=== PATIENT | female | born 1980 | race Caucasian/White ===

== ENCOUNTER 2016-07-06 19:56 | Emergency (ER) | payer MEDICAID ==
[2016-07-06 20:19] VITALS: BP 133/76
--- NOTE | 2016-07-06 20:19 | ER Document Report ---
ED Medical Screen (RME) - General Stated Complaint: TOOTHACHE Time seen by provider: 20:17 Mode of Arrival: Ambulatory Information source: Patient Notes: 36-year-old female complaining of lower central incisor pain due to receding gumline. Her dentist told her she needed to have surgery on the gums. No abscess. [place] oil is not helping. - Related Data Allergies/Adverse Reactions: Sulfa (Sulfonamide Antibiotics) Allergy (Verified 06/25/11 08:24) Past Medical History Pulmonary Medical History: Reports: Hx Asthma Neurological Medical History: Reports: Hx Migraine Past Surgical History: Reports: Hx Tubal Ligation - Immunizations Hx Diphtheria, Pertussis, Tetanus Vaccination: Yes
[2016-07-06] MEDS ORDERED: OXYCODONE-ACETAMINOPHEN 5-325 MG TABLET PO ONE (20:53)
--- NOTE | 2016-07-06 20:55 | ER Document Report ---
HPI - HPI Patient complains to provider of: dental pain Onset: Yesterday Onset/Duration: Gradual Quality of pain: Achy Pain Level: 5 Context: Patient complains of dental pain that started yesterday. Patient states she is currently on amoxicillin and Motrin to treat for dental infection. Patient is to be scheduled for oral surgery after she gets her income tax refund check. Patient states Motrin is not managing her pain symptoms. Associated Symptoms: Other - Dental pain. denies: Fever Exacerbated by: Denies Relieved by: Denies Similar symptoms previously: Yes Recently seen / treated by doctor: Yes - ROS ROS below otherwise negative: Yes Systems Reviewed and Negative: Yes All other systems reviewed and negative - CONSTITUTIONAL Constitutional: DENIES: Fever, Chills - EENT EENT: DENIES: Sore Throat, Ear Pain, Nasal Drainage-Clear, Nasal Drainage- Purulent, Congestion, Eye problems Notes: Dental pain - NEURO Neurology: DENIES: Headache - CARDIOVASCULAR Cardiovascular: DENIES: Chest pain - RESPIRATORY Respiratory: DENIES: Trouble Breathing, Coughing - GASTROINTESTINAL Gastrointestinal: DENIES: Nausea, Patient vomiting - URINARY Urinary: DENIES: Dysuria, Urgency, Frequency - MUSCULOSKELETAL Musculoskeletal: DENIES: Neck Pain - DERM Skin Color: Normal Skin Problems: None - NURSING COMMENTS Comment: Pt states that her 2 front teeth are hurting, gum line receding tissue surrounding teeth red and swollen. Pt states she saw primary care and started amoxicillin and ibuprofen 800 but that they arent helping Past Medical History - General Information source: Patient Last Menstrual Period: last month - Social History Smoking Status: Current Every Day Smoker Cigarette use (# per day): No Chew tobacco use (# tins/day): No Frequency of alcohol use: Occasional Drug Abuse: None Occupation: none Lives with: Family Family History: Reviewed & Not Pertinent Patient has suicidal ideation: No Patient has homicidal ideation: No Pulmonary Medical History: Reports: Hx Asthma Neurological Medical History: Reports: Hx Migraine Past Surgical History: Reports: Hx Tubal Ligation - Immunizations Hx Diphtheria, Pertussis, Tetanus Vaccination: Yes Vertical Provider Document - CONSTITUTIONAL Agree With Documented VS: Yes Exam Limitations: No Limitations General Appearance: WD/WN, No Apparent Distress - INFECTION CONTROL TRAVEL OUTSIDE OF THE [place] IN LAST 30 DAYS: No - HEENT HEENT: Atraumatic, Normocephalic. negative: Pharyngeal Exudate, Pharyngeal Tenderness, Pharyngeal Erythema, Tympanic Membrane Red, Tympanic Membrane Bulging Mouth Diagram: 1 - Tenderness with receding gingiva, no gingival swelling, no abscess. - NECK Neck: Normal Inspection, Supple. negative: Lymphadenopathy-Left, Lymphadenopathy-Right - RESPIRATORY Respiratory: Breath Sounds Normal, No Respiratory Distress O2 Sat by Pulse Oximetry: 100 - CARDIOVASCULAR Cardiovascular: Regular Rate, Regular Rhythm, No Murmur - BACK Back: Normal Inspection - MUSCULOSKELETAL/EXTREMETIES Musculoskeletal/Extremeties: MAEW - NEURO Level of Consciousness: Awake, Alert, Appropriate - DERM Integumentary: Warm, Dry, No Rash Course - Vital Signs Vital signs: Temp Pulse Resp BP Pulse Ox 98.0 F 96 16 133/76 H 100 07/06/16 20:39 07/06/16 20:39 07/06/16 20:39 07/06/16 20:39 07/06/16 20:39 Discharge - Discharge Clinical Impression: Pain, dental Condition: Stable Disposition: HOME, SELF-CARE Instructions: Toothache ([facility]), Oral Narcotic Medication ([facility]) Additional Instructions: Return immediately for any new or worsening symptoms Followup with your dental care provider, call tomorrow to make a followup appointment Continue to take your antibiotics as prescribed Prescriptions: Oxycodone HCl/Acetaminophen [Percocet 5-325 mg Tablet] 1 - 2 tab PO ASDIR PRN # 15 tablet PRN Reason: Referrals: LINCOLN GARCIA PA-C [Primary Care Provider] - Follow up as needed
== END 2016-07-06 21:25 | disposition home or self-care (01) ==
LOC: ER 19:56
DX: K04.7 Periapical abscess without sinus (principal); K08.89 Other specified disorders of teeth and supporting structures; F17.200 Nicotine dependence, unspecified, uncomplicated; J45.909 Unspecified asthma, uncomplicated
CPT/HCPCS: 99282

== ENCOUNTER 2017-04-07 23:08 | Emergency (ER) | payer MEDICAID ==
[2017-04-08] MEDS ORDERED: PREDNISONE 20 MG TABLET PO ONE (00:30)
[2017-04-08] MEDS ORDERED: DIAZEPAM 5 MG TABLET PO ONE (00:30)
[2017-04-08] MEDS ORDERED: KETOROLAC TROMETHAMINE 60 MG/2 ML SDV IM ONE (00:30)
--- NOTE | 2017-04-08 00:36 | ER Document Report ---
ED Neck/Back Problem - General Chief Complaint: LOWER BACK PAIN Stated Complaint: BACK PAIN Mode of Arrival: Ambulatory Information source: Patient TRAVEL OUTSIDE OF THE [place] IN LAST 30 DAYS: No - HPI Patient complains to provider of: Pain. No: Injury Onset: This evening Where: Home Onset: Sudden Timing: Constant Quality of pain: Pressure Severity: Moderate Context: Lifting. denies: Became dizzy Associated symptoms: Numbness/tingling, Radiation to leg. denies: Chest pain, Abdominal pain, Chills, Constipation, Fever, Incontinence, Like prior neck/back pain, Motor loss, Radiation to arm, Radiation to chest, Sensory loss, Sweaty, Unable to urinate, Lower back pain, Upper back pain Exacerbated by: Movement of trunk Relieved by: Remaining still Similar symptoms previously: Yes Notes: Patient arrives with complaints of low back pain. The patient has a history of chronic back pain. She was seen by pain management up until June of this year when she quit going. She states that she did not like taking the medications. States that she is in the process of moving and lifted a heavy bag of clothing earlier this evening. When she did this she had sudden pain in her lower back radiating down her right leg. This feels like previous pain she has had in the past. She denies any trauma or injury. She denies abdominal pain. She denies any bowel or bladder dysfunction. She denies blood thinners. She denies IV drug use. She denies any nausea, vomiting, diarrhea. She has no other complaints at this time. - Related Data Allergies/Adverse Reactions: Sulfa (Sulfonamide Antibiotics) Allergy (Verified 06/25/11 08:24) Past Medical History - Social History Smoking Status: Unknown if Ever Smoked Family History: Reviewed & Not Pertinent Patient has suicidal ideation: No Patient has homicidal ideation: No Pulmonary Medical History: Reports: Hx Asthma Neurological Medical History: Reports: Hx Migraine Renal/ Medical History: Denies: Hx Peritoneal Dialysis Past Surgical History: Reports: Hx Tubal Ligation - Immunizations Hx Diphtheria, Pertussis, Tetanus Vaccination: Yes Review of Systems - Review of Systems -: Yes All other systems reviewed and negative Physical Exam - Vital signs Vitals: Temp Pulse Resp BP Pulse Ox 98.4 F 94 16 130/80 H 94 04/07/17 23:53 04/07/17 23:53 04/07/17 23:53 04/07/17 23:53 04/07/17 23:53 - Notes Notes: GENERAL: alert, cooperative, nontoxic, no distress. HEAD: normocephalic, atraumatic EYES: conjunctiva pink without discharge, no external redness or swelling. EARS: no external swelling, no external redness NOSE: atraumatic, no external swelling MOUTH/THROAT: mucous membranes moist and pink, posterior pharynx without erythema, swelling, exudate. No trismus or drooling. NECK: soft, supple, full range of motion, no meningismus. CHEST: no distress, lungs clear and equal throughout. No wheezing, rales, rhonchi. CARDIAC: regular rate and rhythm, no murmur, normal capillary refill, normal pulses. No peripheral edema noted. ABDOMEN: soft, nontender, no pusatile mass. BACK: Tenderness to palpation of the lumbar spine and right paraspinal muscles of the lumbar spine into the right sciatic notch. Positive straight leg raise on the right. EXTREMITIES: full range of motion of all extremities. No redness, no swelling. NEURO: alert and oriented -3, no focal deficits, full range of motion of all extremities. 5 out of 5 flexion and extension of the lower extremities bilaterally. Patellar and Achilles deep tendon reflexes are +2 bilaterally. Normal sensation with no saddle anesthesia. PYSCH: appropriate mood, affect. Patient is cooperative. SKIN: pink, warm, dry, no rash. Course - Re-evaluation Re-evalutation: 04/08/17 00:33 The patient is nontoxic appearing with stable vitals. The patient has a history of chronic back pain. She has had back pain similar to this in the past. She was lifting a heavy bag of clothing when she had sudden pain in her lower back going down her right leg. There was no trauma. No sign of cauda equina, epidural abscess/bleed, discitis, AAA, UTI, pyelonephritis. She has a normal neurological exam at this time. Patient will be medicated here with Toradol, Valium, prednisone. Follow-up if not improving within the next week. I will discharge her home with Valium Voltaren and prednisone. She will be instructed to follow-up if not better in 1 week, sooner for increased pain, fever, bowel or bladder dysfunction, or any further concerns. The patient is noted to have elevated blood pressure during today's emergency department visit. The patient was informed of this finding. The patient was instructed that this may be related to pre-hypertension and requires further evaluation with a primary care provider. The patient has no hypertensive symptoms at this time. The patient's emergency department workup and current diagnosis were explained to the patient and or family. Follow-up instructions were provided. Medications if prescribed were discussed. Instructions for when to return to the emergency department including specific worrisome symptoms were discussed with the patient and/or family. - Vital Signs Vital signs: Temp Pulse Resp BP Pulse Ox 98.4 F 94 16 130/80 H 94 04/07/17 23:53 04/07/17 23:53 04/07/17 23:53 04/07/17 23:53 04/07/17 23:53 Discharge - Discharge Clinical Impression: Acute lumbar radiculopathy Condition: Stable Disposition: HOME, SELF-CARE Instructions: Radiculopathy ([facility]) Additional Instructions: Take medications as prescribed. Avoid heavy lifting. Stay mobile. Follow-up if not better in 1 week, sooner for increased pain, fever, difficulty controlling her bowels or bladder, abdominal pain, persistent vomiting, or any further concerns. Your blood pressure was elevated during today's visit. Have this rechecked with your doctor. The medication you were prescribed today may cause drowsiness. Do not drive or operate heavy machinery while taking this medication. Prescriptions: Diazepam [Valium 5 mg Tablet] 5 mg PO BIDP PRN #10 tablet PRN Reason: Diclofenac Sodium [Voltaren] 75 mg PO BID #20 tablet. Prednisone 60 mg PO DAILY #15 tablet Referrals: [facility] [Provider Group] - Follow up as needed
[2017-04-08 01:36] VITALS: BP 115/69
== END 2017-04-08 01:38 | disposition home or self-care (01) ==
LOC: ER 23:08
DX: M54.16 Radiculopathy, lumbar region (principal); M54.5 Low back pain; X50.0XXA Overexertion from strenuous movement or load, initial encounter; Y93.E6 Activity, residential relocation; Y92.009 Unspecified place in unspecified non-institutional (private) residence as the place of occurrence of the external cause; R03.0 Elevated blood-pressure reading, without diagnosis of hypertension; J45.909 Unspecified asthma, uncomplicated; Z88.2 Allergy status to sulfonamides
CPT/HCPCS: 99283; 96372; J3490; J1885; J7512

== ENCOUNTER 2019-03-27 22:52 | Emergency (ER) | payer MEDICAID ==
--- NOTE | 2019-03-27 22:56 | ER Document Report ---
ED Substance Abuse / Acc. OD - General Stated Complaint: POSSIBLE OVERDOSE Time Seen by Provider: 03/27/19 22:55 Mode of Arrival: Stretcher Information source: Patient, Emergency Med Personnel Notes: HISTORY OF PRESENT ILLNESS: Patient is a 38-year-old female with a past medical history of asthma, chronic back pain, and substance abuse who presents with difficulty breathing after heroin overdose requiring Narcan by EMS. Patient reports that she has never attempted had one before, however today she tried "a small amount" that she snorted and is unsure if it was "laced with something." Patient denies any other coingestion, denies intentional overdose. Patient was given 2 mg of Narcan by EMS with dramatic improvement of symptoms, previous to this patient had been nearly apneic with agonal respirations and had to be bagged. Upon arrival patient is at her baseline. Onset: Prior to arrival Provocation: "Not really know why did not" Quality: Accidental overdose Radiation: None Severity: Initially severe, now mild Timing: Improving SI/HI: None Hallucinations: None Current therapist: None Current treatment: None REVIEW OF SYSTEMS: CONSTITUTIONAL : Denies fever or chills, no sweats. Denies recent illness. EENT: Denies eye, ear, throat, or mouth pain or symptoms. Denies nasal or sinus congestion. CARDIOVASCULAR: Denies chest pain. RESPIRATORY: Denies cough, cold, or chest congestion. Denies shortness of breath, difficulty breathing, or wheezing. GASTROINTESTINAL: Denies abdominal pain. Denies nausea, vomiting, or diarrhea. Denies constipation. GENITOURINARY: Denies difficulty urinating, painful urination, burning, frequency, or blood in urine. FEMALE GENITOURINARY: Denies vaginal bleeding, abnormal or irregular periods. Last menstrual period MUSCULOSKELETAL: Denies neck or back pain or joint pain or swelling. SKIN: Denies rash or skin lesions. HEMATOLOGIC : Denies easy bruising or bleeding. LYMPHATIC: Denies swollen, enlarged glands. NEUROLOGICAL: Denies altered mental status or loss of consciousness. Denies headache. Denies weakness or paralysis or loss of use of either side. Denies problems with gait or speech. Denies sensory or motor loss. PSYCHIATRIC: Positive for drug overdose. Denies suicidal/homicidal thoughts. Denies anxiety or stress or depression. All other systems reviewed and negative. PHYSICAL EXAMINATION: GENERAL: Well-appearing, well-nourished and in no acute distress. HEAD: Atraumatic, normocephalic. No scalp deformity, depression, or crepitance. EYES: Pupils are 2mm and equal/round/reactive to light, extraocular movements intact, sclera anicteric, conjunctiva are normal. ENT: Nares patent bilaterally, oropharynx clear without exudates or palatal petechia. Moist mucous membranes. No tonsil hypertrophy. NECK: Normal range of motion, supple without lymphadenopathy. LUNGS: Breath sounds present, equal, and clear to auscultation bilaterally. No wheezes, rales, or rhonchi. HEART: Regular rate and rhythm without murmurs, rubs, or gallops. 2+ peripheral pulses. Normal capillary refill. ABDOMEN: Soft, nontender, nondistended. Normoactive bowel sounds. No guarding, no rebound. No masses appreciated. BACK: Normal contour, no midline tenderness. Rectal exam deferred. GENITAL/PELVC: Deferred. EXTREMITIES: Normal range of motion, no pitting or edema. No cyanosis. NEUROLOGICAL: No focal neurological deficits. Moves all extremities spontaneously and on command. PSYCH: Normal mood, normal affect. No suicidal thoughts/ideations. No homicidal thoughts/ideations. No hallucinations. SKIN: Warm, dry, normal turgor, no rashes or lesions noted. ASSESSMENT AND PLAN: This patient is a 38-year-old female who presents with supposed to accidental overdose on heroin requiring Narcan due to respiratory distress. 1. Will obtain labs, monitor overnight, and medically clear. 2. Will reassess in the morning for safe disposition. TRAVEL OUTSIDE OF THE [place] IN LAST 30 DAYS: No - HPI Patient complains to provider of: Accidental overdose Onset: Just prior to arrival Onset/Duration: Sudden Quality of pain: No pain Severity: Mild Pain Level: Denies Situational problems related to: Other Overdose of: Other - Heroin Associated Symptoms: Short of breath, Fainting Similar symptoms previously: No Recently seen / treated by doctor: No - Related Data Allergies/Adverse Reactions: Sulfa (Sulfonamide Antibiotics) Allergy (Verified 06/25/11 08:24) Past Medical History - General Information source: Patient, Emergency Med Personnel - Social History Smoking Status: Current Every Day Smoker Chew tobacco use (# tins/day): No Frequency of alcohol use: Occasional Drug Abuse: Heroin Lives with: Alone Family History: Reviewed & Not Pertinent Patient has suicidal ideation: No Patient has homicidal ideation: No - Past Medical History Cardiac Medical History: Reports: None Pulmonary Medical History: Reports: Hx Asthma, Hx Pneumonia EENT Medical History: Reports: None Neurological Medical History: Reports: Hx Migraine Endocrine Medical History: Reports: None Renal/ Medical History: Reports: None. Denies: Hx Peritoneal Dialysis Malignancy Medical History: Reports: None GI Medical History: Reports: None Musculoskeletal Medical History: Reports None Skin Medical History: Reports None Psychiatric Medical History: Reports: Hx Bipolar Disorder, Hx Depression Traumatic Medical History: Reports: None Infectious Medical History: Reports: None Surgical Hx: Negative Past Surgical History: Reports: None, Hx Tubal Ligation - Immunizations Hx Diphtheria, Pertussis, Tetanus Vaccination: Yes Review of Systems - Review of Systems Constitutional: No symptoms reported EENT: No symptoms reported Cardiovascular: No symptoms reported Respiratory: No symptoms reported Gastrointestinal: No symptoms reported Genitourinary: No symptoms reported Female Genitourinary: No symptoms reported Musculoskeletal: No symptoms reported Skin: No symptoms reported Hematologic/Lymphatic: No symptoms reported Neurological/Psychological: See HPI, Other - Axonal drug overdose -: Yes All other systems reviewed and negative Physical Exam - Vital signs Vitals: Resp Pulse Ox 18 96 03/27/19 23:02 03/27/19 23:02 Interpretation: Normal Course - Re-evaluation Re-evalutation: 03/28/19 05:39 Patient has been observed overnight and is medically cleared. Will discharge the patient home with strict return precautions and follow-up with primary care. All results were explained to and discussed with the patient, and all questions addressed and answered. The patient voices both understanding and agreeing with the plan. - Vital Signs Vital signs: Temp Pulse Resp BP Pulse Ox 97.9 F 12 129/89 H 97 03/27/19 23:05 03/28/19 05:11 03/28/19 05:11 03/28/19 05:11 - Laboratory Result Diagrams: 03/27/19 23:40 03/27/19 23:40 Laboratory results interpreted by me: 03/27/19 03/27/19 23:40 23:40 WBC 11.8 H Hgb 11.6 L MCH 26.3 L RDW 15.6 H Lymph % (Auto) 9.9 L Absolute Neuts (auto) 9.6 H Seg Neutrophils % 81.1 H Carbon Dioxide 32 H Anion Gap 4 L Glucose 121 H Calcium 8.3 L Total Protein 5.8 L Albumin 3.1 L Salicylates < 1.0 L Acetaminophen < 10 L - Diagnostic Test Radiology reviewed: Image reviewed, Reports reviewed - EKG Interpretation by Me EKG shows normal: Sinus rhythm Rate: Normal Rhythm: NSR Lesage/QRS: No: Right axis deviation, Left axis deviation, RBBB, LBBB, IVCD, LAHB/LAFB, LPHB/LPFB, Bifasicular block Voltage: No: Increased voltage, Consistant with LVH, Decreased voltage, Throughout, Limb leads P Waves: No: ROHAN, LAE, Absent, AV Dissociation, Other Heart block present: No: 1st Degree, Mobitz 1, Mobitz 2, CHB (3rd degree block) When compared to previous EKG there are: No significant change Discharge - Discharge Clinical Impression: Accidental drug overdose Qualifiers: Encounter type: initial encounter Qualified Code(s): T50.901A - Poisoning by unspecified drugs, medicaments and biological substances, accidental (unintentional), initial encounter Condition: Good Disposition: HOME, SELF-CARE Instructions: Instructions for Home Care Following a Drug Overdose ([facility]) Additional Instructions: You have been evaluated in the Emergency Department for an accidental drug ove rdose. While here, you had blood work and were observed and it is now safe to be discharged home. Please follow-up with your primary physician as instructed in one week to be rechecked. Return to the Emergency Department if you experience difficulty breathing, chest pain, or any other concerning symptoms. Print Language: Nepalese
[2019-03-28] LABS: ABSOLUTE EOSINOPHILS # (AUTO) 0.5 10^3/uL (0.0-0.6); ABSOLUTE LYMPHOCYTES (AUTO) 1.2 10^3/uL (0.5-4.7); ABSOLUTE MONOCYTES (AUTO) 0.6 10^3/uL (0.1-1.4); ABSOLUTE NEUT (AUTO) 9.6 10^3/uL (1.7-8.2); BASOPHILS % (AUTO) 0.2 % (0-2); HEMOGLOBIN 11.6 g/dL (12.0-15.5); LYMPHOCYTES % (AUTO) 9.9 % (13-45); MEAN CORPUSCULAR HEMOGLOBIN 26.3 pg (27.0-33.4); MEAN CORPUSCULAR HGB CONC 32.2 g/dL (32.0-36.0); MEAN CORPUSCULAR VOLUME 82 fl (80-97); MONOCYTES % (AUTO) 4.8 % (3-13); PLATELET COUNT 303 10^3/uL (150-450); RED BLOOD COUNT 4.41 10^6/uL (3.72-5.28); RED CELL DISTRIBUTION WIDTH 15.6 % (11.5-14.0); SEGMENTED NEUTROPHILS % (AUTO) 81.1 % (42-78); TOTAL CELLS COUNTED % (AUTO) 100 %; WHITE BLOOD COUNT 11.8 10^3/uL (4.0-10.5)
--- NOTE | 2019-03-28 00:11 | RADIOLOGY REPORT (SQ) ---
EXAM DESCRIPTION: XR CHEST 1 VIEW COMPLETED DATE/TME: 03/27/2019 23:32 CLINICAL HISTORY: 38 years, Female, Shortness of breath COMPARISON: 01/26/2019 chest NUMBER OF VIEWS: 1 TECHNIQUE: Portable chest LIMITATIONS: None. FINDINGS: The heart size is normal. The lungs are clear. No pneumothorax IMPRESSION: Negative chest copyright 2010 [employer]- All Rights Reserved
[2019-03-28 00:15] LABS: ALBUMIN 3.1 g/dL (3.5-5.0); ALKALINE PHOSPHATASE 53 U/L (38-126); ASPARTATE AMINO TRANSFERASE 29 U/L (14-36); BILIRUBIN,DIRECT 0.1 mg/dL (0.0-0.4); BILIRUBIN,TOTAL 0.2 mg/dL (0.2-1.3); BLOOD UREA NITROGEN 12 mg/dL (7-20); CALCIUM 8.3 mg/dL (8.4-10.2); CARBON DIOXIDE 32 mmol/L (22-30); CHLORIDE 103 mmol/L (98-107); CREATINE KINASE 87 U/L (30-135); GLUCOSE 121 mg/dL (75-110); POTASSIUM 3.8 mmol/L (3.6-5.0); TOTAL PROTEIN 5.8 g/dL (6.3-8.2)
[2019-03-28 00:17] LABS: ACETAMINOPHEN < 10 ug/mL (10-30); ALCOHOL < 10 mg/dL (NONE DETECTED); SALICYLATE < 1.0 mg/dL (2.0-20.0)
[2019-03-28 00:19] LABS: ANION GAP 4 (5-19)
[2019-03-28 05:19] VITALS: BP 129/89
[2019-03-28] MEDS ORDERED: NORMAL SALINE 1000 ML 1,000 ML IV ONE (05:38)
[2019-03-28] MEDS ORDERED: IPRATROPIUM/ALBUTEROL 0.5-2.5 MG/3 ML AMPUL NEB ONE (05:46)
--- NOTE | 2019-03-28 08:06 | EKG REPORT ---
SEVERITY:- NORMAL ECG - SINUS RHYTHM : Confirmed by: Ninfa Espinoza MD 28-Mar-2019 08:05:46
== END 2019-03-28 06:00 | disposition home or self-care (01) ==
LOC: ER 22:52
DX: T40.1X1A Poisoning by heroin, accidental (unintentional), initial encounter (principal); R06.03 Acute respiratory distress; R55 Syncope and collapse; J45.909 Unspecified asthma, uncomplicated; R06.02 Shortness of breath; F17.200 Nicotine dependence, unspecified, uncomplicated; Z88.2 Allergy status to sulfonamides
CPT/HCPCS: 93005; 36415; 80307 ×3; 82550; 85025; 80053; 84484; 71045; 93010; J7030; J7620

== ENCOUNTER 2019-04-18 05:39 | Inpatient (IN) | payer MEDICAID ==
--- NOTE | 2019-04-18 06:21 | RADIOLOGY REPORT (SQ) ---
EXAM DESCRIPTION: XR CHEST 1 VIEW COMPLETED DATE/TME: 04/18/2019 05:44 CLINICAL HISTORY: 38 years Female, ETT COMPARISON: 03/27/19 NUMBER OF VIEWS/TECHNIQUE: 1/AP FINDINGS: Tip of an endotracheal tube is 1.7 cm from the karishma. Recommend 2 cm retraction of the endotracheal tube. Adequate appearing enteric tube. Limitation: Leads/hardware/artifact. Adequate lung volume, clear parenchyma, normal cardiac silhouette, and intact bony thorax. IMPRESSION: 1. Tip of an endotracheal tube is 1.7 cm from the karishma. Recommend 2 cm retraction of the endotracheal tube. 2. No acute cardiopulmonary findings.
[2019-04-18 06:24] LABS: VENOUS BLOOD BASE EXCESS -5.5 mmol/L; VENOUS BLOOD HCO3 22.6 mmol/L (20-32); VENOUS BLOOD PCO2 54.8 mmHg (35-63); VENOUS BLOOD PH 7.23 (7.30-7.42)
[2019-04-18] MEDS ORDERED: MIDAZOLAM 2 MG/2 ML INJ IV ONE ×2 (06:30→06:47)
[2019-04-18] MEDS ORDERED: MIDAZOLAM 2 MG/2 ML INJ ONE (06:31)
--- NOTE | 2019-04-18 06:34 | ER Document Report ---
Entered by ROCHELLE PECK SCRIBE 04/18/19 0545 Acting as scribe for:DANILO BONILLA DO ED General - General Stated Complaint: UNRESPONSIVE Mode of Arrival: Medic Cannot obtain history due to: Intubated Notes: 38-year-old female who presents to the emergency department today via EMS after apparent cardiac arrest. EMS reports that when they arrived on scene CPR was being performed. EMS reports that the patient was grunting through the compressions along with agonal breathing. EMS reports there was an inhaler next to the patient on the ground. EMS reports patient was hypertensive and tachycardic with no gag reflex. The patient was seen here about 3 weeks ago for a heroin overdose. Patient had stated at that time that this was the first time using heroin and she "thought it was laced". Glucose for EMS was 232. TRAVEL OUTSIDE OF THE [place] IN LAST 30 DAYS: No - Related Data Allergies/Adverse Reactions: Sulfa (Sulfonamide Antibiotics) Allergy (Verified 06/25/11 08:24) Past Medical History - General Cannot obtain history due to: Intubated - Social History Smoking Status: Unknown if Ever Smoked Drug Abuse: Heroin, Prescription drugs Family History: Reviewed & Not Pertinent Pulmonary Medical History: Reports: Hx Asthma, Hx Pneumonia Neurological Medical History: Reports: Hx Migraine Psychiatric Medical History: Reports: Hx Bipolar Disorder, Hx Depression Past Surgical History: Reports: Hx Tubal Ligation - Immunizations Hx Diphtheria, Pertussis, Tetanus Vaccination: Yes Review of Systems - Review of Systems -: Yes ROS unobtainable due to patient's medical condition Physical Exam - Vital signs Vitals: Resp Pulse Ox 16 99 04/18/19 05:42 04/18/19 05:42 Interpretation: Normal - General General appearance: Lethargic In distress: Severe - HEENT Head: Normocephalic, Atraumatic Cornea: Normal Extraocular movements intact: No Mouth/Lips: Other - ETT in place - Respiratory Breath sounds: Normal Notes: Intubated - Cardiovascular Rhythm: Regular - Abdominal Inspection: Normal Distension: No distension Tenderness: Nontender - Back Back: Normal - Extremities General upper extremity: Normal inspection, Normal color General lower extremity: Normal inspection, Normal color - Neurological Estela Coma Scale Eye Opening: None [place] Coma Scale Verbal: None [place] Coma Scale Motor: None - Intubated and given rocuronium prior to arrival [place] Coma Scale Total: 3 - Skin Skin Temperature: Cool Skin Moisture: Dry Skin Color: Normal Course - Re-evaluation Re-evalutation: 04/18/19 06:06 Patient is a 38-year-old female who was intubated prior to arrival. Initial call was for cardiac arrest. Patient had pulse when medics arrived but was agonal breathing at 6. She was intubated using ketamine and rocuronium. She was also given Solu-Medrol and magnesium. Patient chest x-ray within normal limits. ET tube in good position. Lungs are clear at this time. 04/18/19 06:[address] Alan from ICU. He will be down to see her. Request head CT. That has been ordered. 04/18/19 06:31 Notified by nursing staff that patient is starting to breathe over the vent. She is not tachycardic and hypertensive. Versed 5 mg IV ordered. Patient is moving her tongue and moving her head but not eye-opening or following commands. 04/18/19 06:32 Care will be transition to Dr. Martinez, oncoming ED physician. - Vital Signs Vital signs: Temp Pulse Resp BP Pulse Ox 14 108/78 100 04/18/19 06:16 04/18/19 06:01 04/18/19 06:16 - Laboratory Result Diagrams: 04/18/19 05:55 04/18/19 05:55 Laboratory results interpreted by me: 04/18/19 05:55 VBG pH 7.23 L Critical Care Note - Critical Care Note Total time excluding time spent on procedures (mins): 35 - Evaluation and management of respiratory failure, consultation with specialist Discharge - Discharge Clinical Impression: Respiratory failure Qualifiers: Chronicity: acute Respiratory failure complication: unspecified whether with hypoxia or hypercapnia Qualified Code(s): J96.00 - Acute respiratory failure, unspecified whether with hypoxia or hypercapnia Condition: Stable Disposition: OTHER I personally performed the services described in the documentation, reviewed and edited the documentation which was dictated to the scribe in my presence, and it accurately records my words and actions.
[2019-04-18 06:37] LABS: ABSOLUTE BASOPHILS # (AUTO) 0.1 10^3/uL (0.0-0.2); ABSOLUTE EOSINOPHILS # (AUTO) 0.6 10^3/uL (0.0-0.6); ABSOLUTE LYMPHOCYTES (AUTO) 2.9 10^3/uL (0.5-4.7); ABSOLUTE MONOCYTES (AUTO) 0.4 10^3/uL (0.1-1.4); ABSOLUTE NEUT (AUTO) 7.6 10^3/uL (1.7-8.2); BASOPHILS % (AUTO) 0.5 % (0-2); EOSINOPHILS % (AUTO) 5.5 % (0-6); HEMATOCRIT 39.9 % (36.0-47.0); HEMOGLOBIN 12.7 g/dL (12.0-15.5); LYMPHOCYTES % (AUTO) 25.3 % (13-45); MEAN CORPUSCULAR HEMOGLOBIN 26.6 pg (27.0-33.4); MEAN CORPUSCULAR HGB CONC 31.8 g/dL (32.0-36.0); MEAN CORPUSCULAR VOLUME 84 fl (80-97); MONOCYTES % (AUTO) 3.8 % (3-13); PLATELET COUNT 413 10^3/uL (150-450); RED BLOOD COUNT 4.78 10^6/uL (3.72-5.28); RED CELL DISTRIBUTION WIDTH 16.5 % (11.5-14.0); SEGMENTED NEUTROPHILS % (AUTO) 64.9 % (42-78); TOTAL CELLS COUNTED % (AUTO) 100 %; WHITE BLOOD COUNT 11.7 10^3/uL (4.0-10.5)
[2019-04-18] MEDS ORDERED: NORMAL SALINE 1000 ML 1,000 ML IV ONE (06:39)
[2019-04-18 06:40] LABS: PROTHROMBIN TIME 13.2 SEC (11.4-15.4)
[2019-04-18 06:44] LABS: ALKALINE PHOSPHATASE 65 U/L (38-126); ANION GAP 13 (5-19); ASPARTATE AMINO TRANSFERASE 73 U/L (14-36); BILIRUBIN,TOTAL 0.4 mg/dL (0.2-1.3); BLOOD UREA NITROGEN 12 mg/dL (7-20); CALCIUM 7.9 mg/dL (8.4-10.2); CARBON DIOXIDE 22 mmol/L (22-30); CHLORIDE 107 mmol/L (98-107); GLUCOSE 204 mg/dL (75-110); POTASSIUM 3.3 mmol/L (3.6-5.0); TOTAL PROTEIN 5.7 g/dL (6.3-8.2)
[2019-04-18 06:44] LABS: APPEARANCE,URINE SLIGHTLY-CLOUDY; BILIRUBIN,URINE NEGATIVE (NEGATIVE); COLOR,URINE YELLOW; GLUCOSE, URINE >=500 mg/dL (NEGATIVE); KETONES,URINE NEGATIVE (NEGATIVE); PROTEIN,URINE 100 mg/dL (NEGATIVE); URINE SPECIFIC GRAVITY 1.011; UROBILINOGEN,URINE NEGATIVE mg/dL (<2.0)
[2019-04-18 06:45] LABS: ACETAMINOPHEN < 10 ug/mL (10-30); SALICYLATE < 1.0 mg/dL (2.0-20.0)
[2019-04-18 06:57] LABS: URINE AMPHETAMINES SCREEN UNCONFIRMED POSITIVE; URINE BARBITURATES SCREEN NEGATIVE; URINE BENZODIAZEPINES SCREEN NEGATIVE; URINE COCAINE SCREEN UNCONFIRMED POSITIVE; URINE MARIJUANA (THC) SCREEN NEGATIVE; URINE METHADONE SCREEN NEGATIVE; URINE PHENCYCLIDINE SCREEN NEGATIVE
[2019-04-18] MEDS ORDERED: PROPOFOL 1,000 MG/100 ML INFUS..BTL IV ONE (07:05)
--- NOTE | 2019-04-18 07:26 | RADIOLOGY REPORT (SQ) ---
EXAM DESCRIPTION: CT HEAD WITHOUT IV CONTRAST COMPLETED DATE/TME: 04/18/2019 06:27 CLINICAL HISTORY: 38 years, Female, AMS COMPARISON: 04/14/2011 TECHNIQUE: Axial CT images of the brain were obtained without contrast. Sagittal and coronal reformats were performed. DL 1056 Images stored on PACS. All CT scanners at this facility use dose modulation, iterative reconstruction, and/or weight based dosing when appropriate to reduce radiation dose to as low as reasonably achievable (ALARA). [facility]: Dose Right [facility]: CareDose [facility]: Dose Right [facility]: Teradose 4D [facility]: [employer] LIMITATIONS: None. FINDINGS: There is no acute cortical infarct, hemorrhage, mass, edema, hydrocephalus, or extra-axial fluid collection. The sharp-white matter differentiation is preserved. Beam hardening artifact limits evaluation of the posterior fossa. There is mild mucosal thickening of the paranasal sinuses. The mastoid air cells are clear. There is no fracture IMPRESSION: No acute intracranial abnormality TECHNICAL DOCUMENTATION: Quality ID # 436: Final reports with documentation of one or more dose reduction techniques (e.g., Automated exposure control, adjustment of the mA and/or kV according to patient size, use of iterative reconstruction technique) copyright 2011 [employer]- All Rights Reserved
[2019-04-18] MEDS ORDERED: PROPOFOL 1,000 MG/100 ML INFUS..BTL IV PRN (07:27)
--- NOTE | 2019-04-18 08:31 | CRITICAL CARE ADMISSION REPORT ---
HPI Date:: 04/18/19 Time:: 08:16 Reason for ICU Reason:: Respiratory Arrest HPI: 38-year-old white female with a history of asthma and recreational drug use found down by bystanders. There is no EMS or family or bystanders in the emergency room for further information. Information obtained and given to nursing and ED personnel relate that patient was found not breathing. Bystanders initiated CPR. EMS found patient with pulse but shallow respirations and minimal breath sounds. Intubated with ketamine and Rocuronium. Initial glucose 221. No drug paraphernalia found on-site. In ED, had head CT which was negative for pathology. negative. No abnormal labs except for low K+. Given solu-medrol and Albuterol. Unable to obtain any history from patient. On ventilator. No elevation in Peak airway pressures. CXR unremarkable. History obtained from:: ED personell. Spoke with sister who was not on scene. - Diagnosis/Plan (1) Respiratory arrest Is this a current diagnosis for this admission?: Yes Plan: We will need to determine whether this was drug-induced and/or other etiologies. Have tried to contact bystanders. Family is on the way to hopefully provide more information. Check blood gas. Follow exam. Determine appropriate ability to be liberated from ventilator. Transition to Precedex for ability to wean from ventilator and obtain appropriate neurological exam. (2) History of drug abuse Is this a current diagnosis for this admission?: Yes Plan: Check urine drug screen and other labs (3) Hypokalemia Is this a current diagnosis for this admission?: Yes Plan: Repeat follow-up BMP. This may be related to albuterol use in the field. (4) Hyperglycemia Is this a current diagnosis for this admission?: Yes Plan: We will follow Accu-Cheks and check hemoglobin A1c Past Medical History Past Medical History: Not obtainable from patient all information obtained from ED staff Pulmonary Medical History: Reports: Asthma, Pneumonia Neurological Medical History: Reports: Migraine Psychiatric Medical History: Reports: Bipolar Disorder, Depression Past Surgical History Past Surgical History: Reports: Tubal Ligation Social/Family History - Social History Social History Note: Unable to obtain. Known history of heroin use in the past. Smoking Status: Unknown if Ever Smoked Hx Recreational Drug Use: Yes Drugs: Heroin - Medication/Allergies Allergies/Adverse Reactions: Sulfa (Sulfonamide Antibiotics) Allergy (Verified 06/25/11 08:24) Review of Systems ROS unobtainable: Due to endotracheal tube Physical Exam Vital Signs: Temp Pulse Resp BP Pulse Ox 108 H 15 116/77 100 04/18/19 06:47 04/18/19 08:01 04/18/19 08:01 04/18/19 08:01 Intake & Output 04/17/19 04/18/19 04/19/19 06:59 06:59 06:59 Intake Total 699 301 Output Total 400 Balance 699 -99 Weight 62.1 kg Weight/Height Weight 62.1 kg Height 5 ft General appearance: PRESENT: no acute distress, obese Exam: Intubated nontoxic short statured 38-year-old female who appears older than stated age no acute distress. Head exam: PRESENT: atraumatic, normocephalic Eye exam: PRESENT: conjunctival injection, PERRLA. ABSENT: nystagmus, scleral icterus Ear exam: PRESENT: normal external ear exam Mouth exam: PRESENT: dry mucosa Teeth exam: PRESENT: poor dentation Neck exam: ABSENT: carotid bruit, JVD, lymphadenopathy, meningismus, thyromegaly, tracheal deviation, tracheostomy Respiratory exam: PRESENT: clear to auscultation ace, unlabored. ABSENT: accessory muscle use, wheezes Cardiovascular exam: PRESENT: RRR, +S1, +S2. ABSENT: clicks, diastolic murmur, gallop, rubs, systolic murmur, tachycardia Pulses: PRESENT: normal carotid pulses, +2 pedal pulses bilateral Vascular exam: PRESENT: normal capillary refill GI/Abdominal exam: PRESENT: normal bowel sounds, soft. ABSENT: ascites, distended, firm, guarding, mass, Valdez's sign, organolmegaly, rebound, rigid, tenderness Rectal exam: PRESENT: deferred Musculoskeletal exam: PRESENT: normal inspection. ABSENT: deformity, dislocation Neurological exam: PRESENT: altered - Estela Coma Scale: E: 2-V:1i-M: Abnormal movement with noxious stimulus 4:=7T. Babinski's are downgoing. Gag intact s pontaneous respiratory effort Skin exam: PRESENT: normal color. ABSENT: abrasion, cyanosis, erythema, mottled, pallor, petechiae, urticaria, vesicles Tubes/Lines: PRESENT: Endotracheal Tube, Nasogastic Tube, Other - peralta Laboratory/Radiographs Laboratory Results: 04/18/19 05:55 04/18/19 05:55 04/18/19 04/18/19 04/18/19 05:55 05:55 05:55 WBC 11.7 H RBC 4.78 Hgb 12.7 Hct 39.9 MCV 84 MCH 26.6 L MCHC 31.8 L RDW 16.5 H Plt Count 413 Seg Neutrophils % 64.9 VBG pH VBG pCO2 VBG HCO3 VBG Base Excess Sodium 141.7 Potassium 3.3 L Chloride 107 Carbon Dioxide 22 Anion Gap 13 BUN 12 Creatinine 0.69 Est GFR ( Amer) > 60 Glucose 204 H Lactic Acid 3.9 H Calcium 7.9 L Total Bilirubin 0.4 AST 73 H Alkaline Phosphatase 65 Total Protein 5.7 L Albumin 3.0 L Serum HCG, Qual Urine Color Urine Appearance Urine pH Ur Specific Advance Urine Protein Urine Glucose (UA) Urine Ketones Urine Blood Urine RBC (Auto) 04/18/19 04/18/19 04/18/19 05:55 05:55 06:05 WBC RBC Hgb Hct MCV MCH MCHC RDW Plt Count Seg Neutrophils % VBG pH 7.23 L VBG pCO2 54.8 VBG HCO3 22.6 VBG Base Excess -5.5 Sodium Potassium Chloride Carbon Dioxide Anion Gap BUN Creatinine Est GFR ( Amer) Glucose Lactic Acid Calcium Total Bilirubin AST Alkaline Phosphatase Total Protein Albumin Serum HCG, Qual NEGATIVE Urine Color YELLOW Urine Appearance SLIGHTLY-CLOUDY Urine pH 6.0 Ur Specific Advance 1.011 Urine Protein 100 H Urine Glucose (UA) >=500 H Urine Ketones NEGATIVE Urine Blood NEGATIVE Urine RBC (Auto) 04/18/19 05:55 Troponin I < 0.012 Impressions: Chest X-Ray 04/18/19 05:44 IMPRESSION: 1. Tip of an endotracheal tube is 1.7 cm from the karishma. Recommend 2 cm retraction of the endotracheal tube. 2. No acute cardiopulmonary findings. Head CT 04/18/19 06:27 IMPRESSION: No acute intracranial abnormality TECHNICAL DOCUMENTATION: Quality ID # 436: Final reports with documentation of one or more dose reduction techniques (e.g., Automated exposure control, adjustment of the mA and/or kV according to patient size, use of iterative reconstruction technique) copyright 2011 [employer]- All Rights Reserved EKG: NSR. No acute changes Critical Time Critical Time (minutes): 80 -: The care of a critically ill patient is dynamic. This note represents a static moment in the admission process. orders and treatments may be given simultaneously and urgently, and time is not compliance representative dealer of the treatment process. This patient requires Critical Care secondary to life threatening organ or limb dysfunction. Without the need for Critical Care services, the patient is at risk for increased mortality and morbidity.
[2019-04-18 08:51] LABS: ARTERIAL BLOOD H2CO3 1.04 mmol/L (1.05-1.35); ARTERIAL BLOOD HCO3 24.3 mmol/L (20-24); ARTERIAL BLOOD O2 SATURATION 99.2 % (94-98); ARTERIAL BLOOD PCO2 34.6 mmHg (35-45); ARTERIAL BLOOD PH 7.47 (7.35-7.45); ARTERIAL BLOOD PO2 165.1 mmHg (80-100); ARTERIAL BLOOD TOTAL CO2 25.4 mmol/L (21-25)
[2019-04-18 08:52] LABS: ARTERIAL BLOOD FIO2 40%
[2019-04-18] MEDS ORDERED: FAMOTIDINE 20 MG TABLET PO SCH (10:00)
[2019-04-18] MEDS ORDERED: DOCUSATE SODIUM 100 MG/10 ML UDC PO SCH (10:00)
[2019-04-18 10:25] LABS: APPEARANCE,URINE CLEAR; BILIRUBIN,URINE NEGATIVE (NEGATIVE); COLOR,URINE YELLOW; GLUCOSE, URINE NEGATIVE (NEGATIVE); KETONES,URINE NEGATIVE (NEGATIVE); LEUKOCYTE ESTERASE,URINE NEGATIVE (NEGATIVE); NITRITE,URINE NEGATIVE (NEGATIVE); PROTEIN,URINE NEGATIVE (NEGATIVE); URINE SPECIFIC GRAVITY 1.017; UROBILINOGEN,URINE NEGATIVE mg/dL (<2.0)
[2019-04-18] MEDS: DEXMEDETOMIDINE IN 0.9 % NACL 400 MCG/100 ML RTUPB IV PRN ×2 (11:00→18:10)
[2019-04-18] MEDS: HEPARIN SOD (PORCINE) 5,000 UNIT/ML 1 ML VIAL SUBCUT SCH ×2 (11:02→18:11)
[2019-04-18] MEDS: RINGERS SOLUTION,LACTATED 1,000 ML IV PRN ×2 (11:13→23:49)
[2019-04-18 11:33] LABS: PARTIAL THROMBOPLASTIN TIME 23.8 SEC (23.5-35.8); PROTHROMBIN TIME 13.2 SEC (11.4-15.4)
[2019-04-18 12:24] LABS: PHOSPHORUS 3.4 mg/dL (2.5-4.5)
[2019-04-18] MEDS ORDERED: INFLUENZA QUAD (6MOS+) 2019-20 VAC 0.5 ML SYR IM ONE (13:30)
[2019-04-18 13:53] LABS: ANION GAP 10 (5-19); BLOOD UREA NITROGEN 12 mg/dL (7-20); CALCIUM 8.7 mg/dL (8.4-10.2); CARBON DIOXIDE 24 mmol/L (22-30); CHLORIDE 105 mmol/L (98-107); GLUCOSE 130 mg/dL (75-110); POTASSIUM 4.2 mmol/L (3.6-5.0)
[2019-04-18] MEDS ORDERED: MINERAL OIL/PETROLATUM,WHITE OPH OINT 3.5 GM OU SCH (14:00)
[2019-04-18] MEDS ORDERED: BENZOCAINE/MENTHOL SORE THROAT LOZENGE BUCCAL PRN (16:45)
[2019-04-19] MEDS: IPRATROPIUM/ALBUTEROL 0.5-2.5 MG/3 ML AMPUL NEB PRN ×2 (00:25→06:00)
[2019-04-19] MEDS: DEXMEDETOMIDINE IN 0.9 % NACL 400 MCG/100 ML RTUPB IV PRN (02:28)
[2019-04-19 04:08] LABS: ABSOLUTE LYMPHOCYTES (AUTO) 1.8 10^3/uL (0.5-4.7); ABSOLUTE MONOCYTES (AUTO) 0.7 10^3/uL (0.1-1.4); ABSOLUTE NEUT (AUTO) 6.6 10^3/uL (1.7-8.2); BASOPHILS % (AUTO) 0.2 % (0-2); EOSINOPHILS % (AUTO) 0.2 % (0-6); HEMATOCRIT 35.5 % (36.0-47.0); HEMOGLOBIN 11.5 g/dL (12.0-15.5); LYMPHOCYTES % (AUTO) 19.7 % (13-45); MEAN CORPUSCULAR HEMOGLOBIN 26.8 pg (27.0-33.4); MEAN CORPUSCULAR HGB CONC 32.5 g/dL (32.0-36.0); MEAN CORPUSCULAR VOLUME 82 fl (80-97); MONOCYTES % (AUTO) 7.9 % (3-13); PLATELET COUNT 326 10^3/uL (150-450); RED BLOOD COUNT 4.31 10^6/uL (3.72-5.28); TOTAL CELLS COUNTED % (AUTO) 100 %; WHITE BLOOD COUNT 9.1 10^3/uL (4.0-10.5)
[2019-04-19 04:31] LABS: ALBUMIN 3.2 g/dL (3.5-5.0); ALKALINE PHOSPHATASE 56 U/L (38-126); ANION GAP 7 (5-19); ASPARTATE AMINO TRANSFERASE 39 U/L (14-36); BILIRUBIN,DIRECT 0.1 mg/dL (0.0-0.4); BILIRUBIN,TOTAL 0.5 mg/dL (0.2-1.3); BLOOD UREA NITROGEN 13 mg/dL (7-20); CALCIUM 8.6 mg/dL (8.4-10.2); CARBON DIOXIDE 27 mmol/L (22-30); CHLORIDE 109 mmol/L (98-107); GLUCOSE 112 mg/dL (75-110); POTASSIUM 4.6 mmol/L (3.6-5.0); TOTAL PROTEIN 6.2 g/dL (6.3-8.2)
[2019-04-19] MEDS: HEPARIN SOD (PORCINE) 5,000 UNIT/ML 1 ML VIAL SUBCUT SCH ×2 (04:33→10:19)
--- NOTE | 2019-04-19 09:01 | RADIOLOGY REPORT (SQ) ---
EXAM DESCRIPTION: CHEST SINGLE VIEW COMPLETED DATE/TIME: 04/19/2019 6:15 am REASON FOR STUDY: respiratory failure COMPARISON: 04/18/2019 EXAM PARAMETERS: NUMBER OF VIEWS: One view. TECHNIQUE: Single frontal radiographic view of the chest acquired. RADIATION DOSE: NA LIMITATIONS: None. FINDINGS: LUNGS AND PLEURA: No pneumothorax or infiltrate. MEDIASTINUM AND HILAR STRUCTURES: No masses. Contour normal. HEART AND VASCULAR STRUCTURES: Heart normal in size. Normal vasculature. BONES: No acute findings. HARDWARE: None in the chest. OTHER: Interval removal of endotracheal and nasogastric tubes. IMPRESSION: Interval extubation. No pneumothorax. TECHNICAL DOCUMENTATION: JOB ID: [id number] [employer]- All Rights Reserved Reading location - IP/workstation name: [email or web address]
[2019-04-19] MEDS: RINGERS SOLUTION,LACTATED 1,000 ML IV PRN (10:19)
--- NOTE | 2019-04-19 10:55 | PDOC PROGRESS REPORT ---
Subjective Progress Note for:: 04/19/19 Subjective:: Patient was successfully extubated yesterday and has remained off ventilator and respiratory support since that time. She endorses that she did in fact take the medications found in her urine drug screen. She states that she inhaled these medications. She has never sought rehab for her recreational drug use. She does complain of back discomfort and states that she has disc disease. She has been hemodynamically stable however she is starting to feel some restles sness. She has threatened to leave AGAINST MEDICAL ADVICE. Reason For Visit: 38-year-old white female with a history of asthma and recreational drug use found down by bystanders. There is no EMS or family or bystanders in the emergency room for further information. Information obtained and given to nursing and ED personnel relate that patient was found not breathing. Bystanders initiated CPR. EMS found patient with pulse but shallow respirations and minimal breath sounds. Intubated with ketamine and Rocuronium. Initial glucose 221. No drug paraphernalia found on-site. In ED, had head CT which was negative for pathology. negative. No abnormal labs except for low K+. Given solu-medrol and Albuterol. Unable to obtain any history from patient. On ventilator. No elevation in Peak airway pressures. CXR unremarkable. Physical Exam Vital Signs: Temp Pulse Resp BP Pulse Ox 98 F 63 20 94/60 L 95 04/19/19 03:48 04/19/19 06:00 04/19/19 07:00 04/19/19 06:53 04/19/19 07:00 Intake & Output 04/18/19 04/19/19 04/20/19 06:59 06:59 06:59 Intake Total 699 1500 Output Total 1625 Balance 699 -125 Weight 62.1 kg 59.6 kg Physical Exam: Disheveled, ill-appearing, older appearing 38-year-old female no acute distress. General appearance: PRESENT: no acute distress, cooperative, disheveled, obese Head exam: PRESENT: atraumatic, normocephalic Eye exam: PRESENT: conjunctival injection, EOMI, PERRLA. ABSENT: nystagmus, scleral icterus Ear exam: PRESENT: normal external ear exam Mouth exam: PRESENT: moist, neck supple Teeth exam: PRESENT: poor dentation Neck exam: PRESENT: full ROM. ABSENT: carotid bruit, JVD, lymphadenopathy, meningismus, tenderness, thyromegaly, tracheal deviation Respiratory exam: PRESENT: clear to auscultation ace, unlabored. ABSENT: accessory muscle use, stridor Cardiovascular exam: PRESENT: RRR, +S1, +S2 Pulses: PRESENT: normal carotid pulses, +2 pedal pulses bilateral Vascular exam: PRESENT: normal capillary refill. ABSENT: pallor GI/Abdominal exam: PRESENT: normal bowel sounds, soft. ABSENT: ascites, diminished bowel sounds, distended, firm, guarding, mass, Valdez's sign, organolmegaly, rebound, rigid, tenderness Rectal exam: ABSENT: deferred Gentrourinary exam: ABSENT: indwelling catheter Extremities exam: ABSENT: joint swelling, pedal edema Musculoskeletal exam: PRESENT: normal inspection. ABSENT: deformity, dislocation Additional comments: Back: No spinous process tenderness, no CVA tenderness, mild lower lumbar tissue texture changes with paraspinal muscle tension and tenderness. No warmth, no swelling Neurological exam: PRESENT: alert, awake, oriented to person, oriented to place, oriented to situation, CN II-XII grossly intact. ABSENT: altered, oriented to time, motor sensory deficit, aphasic Psychiatric exam: PRESENT: appropriate affect, normal mood. ABSENT: agitated, anxious, manic Focused psych exam: PRESENT: restlessness. ABSENT: catatonic, euphoric, psychomotor agitation Skin exam: PRESENT: intact, normal color, warm. ABSENT: abrasion, cyanosis, erythema, jaundice, mottled, pallor, petechiae, rash, urticaria, vesicles Additional comments: Multiple tattoos Results Laboratory Results: 04/19/19 03:53 04/19/19 03:53 04/18/19 04/18/19 04/18/19 08:23 09:15 11:14 WBC RBC Hgb Hct MCV MCH MCHC RDW Plt Count Seg Neutrophils % Carbonic Acid 1.04 L HCO3/H2CO3 Ratio 23:1 ABG pH 7.47 H ABG pCO2 34.6 L ABG pO2 165.1 H ABG HCO3 24.3 H ABG O2 Saturation 99.2 H ABG Base Excess 1.0 FiO2 40% Sodium Potassium Chloride Carbon Dioxide Anion Gap BUN Creatinine Est GFR ( Amer) Glucose Calcium Phosphorus Magnesium Total Bilirubin GGT AST Alkaline Phosphatase Ammonia 27.6 Total Protein Albumin TSH Urine Color YELLOW Urine Appearance CLEAR Urine pH 8.0 Ur Specific [place] 1.017 Urine Protein NEGATIVE Urine Glucose (UA) NEGATIVE Urine Ketones NEGATIVE Urine Blood NEGATIVE Urine Nitrite NEGATIVE Ur Leukocyte Esterase NEGATIVE Urine WBC (Auto) 1 Urine RBC (Auto) 1 04/18/19 04/18/19 04/18/19 11:14 11:14 11:14 WBC RBC Hgb Hct MCV MCH MCHC RDW Plt Count Seg Neutrophils % Carbonic Acid HCO3/H2CO3 Ratio ABG pH ABG pCO2 ABG pO2 ABG HCO3 ABG O2 Saturation ABG Base Excess FiO2 Sodium 138.8 Potassium 4.2 Chloride 105 Carbon Dioxide 24 Anion Gap 10 BUN 12 Creatinine 0.60 Est GFR ( Amer) > 60 Glucose 130 H Calcium 8.7 Phosphorus 3.4 Magnesium 2.6 H Total Bilirubin GGT 17 AST Alkaline Phosphatase Ammonia Total Protein Albumin TSH 0.23 L Urine Color Urine Appearance Urine pH Ur Specific [place] Urine Protein Urine Glucose (UA) Urine Ketones Urine Blood Urine Nitrite Ur Leukocyte Esterase Urine WBC (Auto) Urine RBC (Auto) 04/19/19 04/19/19 03:53 03:53 WBC 9.1 RBC 4.31 Hgb 11.5 L Hct 35.5 L MCV 82 MCH 26.8 L MCHC 32.5 RDW 17.0 H Plt Count 326 Seg Neutrophils % 72.0 Carbonic Acid HCO3/H2CO3 Ratio ABG pH ABG pCO2 ABG pO2 ABG HCO3 ABG O2 Saturation ABG Base Excess FiO2 Sodium 142.9 Potassium 4.6 Chloride 109 H Carbon Dioxide 27 Anion Gap 7 BUN 13 Creatinine 0.65 Est GFR ( Amer) > 60 Glucose 112 H Calcium 8.6 Phosphorus Magnesium Total Bilirubin 0.5 GGT AST 39 H Alkaline Phosphatase 56 Ammonia Total Protein 6.2 L Albumin 3.2 L TSH Urine Color Urine Appearance Urine pH Ur Specific [place] Urine Protein Urine Glucose (UA) Urine Ketones Urine Blood Urine Nitrite Ur Leukocyte Esterase Urine WBC (Auto) Urine RBC (Auto) 04/18/19 04/18/19 04/18/19 05:55 11:14 11:14 Creatine Kinase 241 H Troponin I < 0.012 0.018 Impressions: Head CT 04/18/19 06:27 IMPRESSION: No acute intracranial abnormality TECHNICAL DOCUMENTATION: Quality ID # 436: Final reports with documentation of one or more dose reduction techniques (e.g., Automated exposure control, adjustment of the mA and/or kV according to patient size, use of iterative reconstruction technique) copyright 2011 [employer]- All Rights Reserved Status: Image reviewed by me Assessment & Plan - Diagnosis (1) Respiratory arrest Is this a current diagnosis for this admission?: Yes (2) History of drug abuse Is this a current diagnosis for this admission?: Yes (3) Hypokalemia Is this a current diagnosis for this admission?: Yes (4) Hyperglycemia Is this a current diagnosis for this admission?: Yes (5) Acute hyperactive opioid intoxication delirium Is this a current diagnosis for this admission?: Yes (6) Opioid abuse with intoxication Is this a current diagnosis for this admission?: Yes (7) Opioid abuse Is this a current diagnosis for this admission?: Yes (8) Methamphetamine abuse Is this a current diagnosis for this admission?: Yes (9) Methamphetamine addiction Is this a current diagnosis for this admission?: Yes - Time Time Spent with patient: 35 or more minutes Total Critical Time (Minutes): 40 - 5026 Medications reviewed and adjusted accordingly: Yes Anticipated discharge: Home, Other - Needs psych and rehab evaluation Within: within 24 hours - Inpatient Certification I certify that my determination is in accordance with my understanding of Medicare's requirements for reasonable and necessary INPATIENT services [42 CFR 412.3e].: Yes Medical Necessity: Significant Comorbidiites Make Outpatient Treatment Too Risky, Other - Needs drug rehabilitation Post Hospital Care: D/C Vat Operator Documentation - Plan Summary Plan Summary: Patient has successfully weaned from mechanical ventilation and is in her normal baseline state. Start Robaxin and Neurontin to help control and attenuate her pain. Obesity patient has a significant abuse problem and we have referred her to our psychiatric and case management services. We will obtain physical therapy to determine patient's ambulatory needs. We will attempt to have the patient evaluated for rehab. If not patient is seeking to leave and will discuss the possibility of outpatient treatment services. Continue supportive care
[2019-04-19] MEDS: GABAPENTIN 100 MG CAPSULE PO SCH ×3 (12:04→21:04)
[2019-04-19] MEDS: METHOCARBAMOL 750 MG TABLET PO SCH ×4 (12:05→21:04)
[2019-04-19] MEDS ORDERED: METHOCARBAMOL 750 MG TABLET PO ONE (16:30)
[2019-04-19] MEDS ORDERED: ALBUTEROL SULFATE HFA (90 MCG/PUFF) 200 PUFF/8.5 GM MDI IH PRN (17:22)
[2019-04-19] MEDS ORDERED: (PENDING PHARMACY ID) (Lamotrigine [Lamictal] 50 MG) PO SCH (17:22)
[2019-04-19] MEDS ORDERED: METHOCARBAMOL 500 MG TABLET PO SCH (17:23)
[2019-04-19] MEDS: LURASIDONE HCL 40 MG TABLET PO SCH (18:14)
[2019-04-19] MEDS: LAMOTRIGINE 100 MG TABLET PO SCH (18:14)
[2019-04-19] MEDS: BENZOCAINE/MENTHOL SORE THROAT LOZENGE BUCCAL PRN (21:04)
[2019-04-19] MEDS ORDERED: ZOLPIDEM TARTRATE 5 MG TABLET PO SCH (22:00)
[2019-04-20] MEDS: BENZOCAINE/MENTHOL SORE THROAT LOZENGE BUCCAL PRN ×2 (03:21→07:33)
[2019-04-20] MEDS: GABAPENTIN 100 MG CAPSULE PO SCH (07:32)
--- NOTE | 2019-04-20 08:05 | PDOC PROGRESS REPORT ---
Subjective Progress Note for:: 04/20/19 Subjective:: 04.20.19: Patient remained in the ICU awaiting transfer to acute drug rehabilitation program. Program had asked for at least 24 hours of stability post extubation. Patient has remained hemodynamically stable. There is been no respiratory compromise. She describes chest discomfort with a deep breath in her sternum. Patient did receive CPR by bystanders however was found to have a pulse by EMS. He denies any dyspnea. She does have a slight productive cough without shortness of breath. She has had no abdominal pain. 04.19.19:Patient was successfully extubated yesterday and has remained off ventilator and respiratory support since that time. She endorses that she did in fact take the medications found in her urine drug screen. She states that she inhaled these medications. She has never sought rehab for her recreational drug use. She does complain of back discomfort and states that she has disc disease. She has been hemodynamically stable however she is starting to feel some restlessness. She has threatened to leave AGAINST MEDICAL ADVICE. Reason For Visit: RESPIRATORY ARREST Physical Exam Vital Signs: Temp Pulse Resp BP Pulse Ox 99.1 F 97 24 H 101/79 99 04/19/19 12:00 04/19/19 22:00 04/19/19 23:00 04/19/19 20:18 04/19/19 23:00 Intake & Output 04/18/19 04/19/19 04/20/19 06:59 06:59 06:59 Intake Total 699 1500 1378 Output Total 2075 1600 Balance 699 -575 -222 Weight 62.1 kg 59.6 kg Physical Exam: Non-toxic older appearing 38-year-old female no acute distress awake alert oriented x3 General appearance: PRESENT: no acute distress, disheveled, obese Head exam: PRESENT: atraumatic, normocephalic Eye exam: PRESENT: conjunctiva pink, EOMI, PERRLA. ABSENT: conjunctival inje ction, nystagmus, scleral icterus Mouth exam: PRESENT: moist, neck supple, tongue midline Teeth exam: PRESENT: poor dentation Neck exam: PRESENT: full ROM. ABSENT: carotid bruit, JVD, lymphadenopathy, meningismus, tenderness, thyromegaly, tracheal deviation Respiratory exam: PRESENT: clear to auscultation ace, unlabored. ABSENT: accessory muscle use, tachypnea, wheezes Cardiovascular exam: PRESENT: RRR, +S1, +S2. ABSENT: diastolic murmur, gallop, irregular rhythm, rubs, systolic murmur Pulses: PRESENT: +2 pedal pulses bilateral Vascular exam: PRESENT: normal capillary refill GI/Abdominal exam: PRESENT: normal bowel sounds, soft. ABSENT: ascites, diminished bowel sounds, distended, firm, mass, Valdez's sign, rebound, rigid, tenderness Rectal exam: PRESENT: deferred Extremities exam: PRESENT: full ROM. ABSENT: joint swelling, pedal edema Musculoskeletal exam: PRESENT: full ROM, normal inspection. ABSENT: deformity, dislocation Neurological exam: PRESENT: alert, awake, oriented to person, oriented to place, oriented to time, oriented to situation, CN II-XII grossly intact. ABSENT: motor sensory deficit, aphasic Psychiatric exam: PRESENT: appropriate affect. ABSENT: agitated, anxious Focused psych exam: ABSENT: delusional, pressured speech, psychomotor agitation, restlessness Skin exam: PRESENT: intact, normal color, warm. ABSENT: cyanosis, erythema, jaundice, mottled, pallor, petechiae, rash, urticaria, vesicles Results Laboratory Results: 04/19/19 03:53 04/19/19 03:53 04/18/19 04/18/19 04/18/19 05:55 11:14 11:14 Creatine Kinase 241 H Troponin I < 0.012 0.018 Impressions: Head CT 04/18/19 06:27 IMPRESSION: No acute intracranial abnormality TECHNICAL DOCUMENTATION: Quality ID # 436: Final reports with documentation of one or more dose reduction techniques (e.g., Automated exposure control, adjustment of the mA and/or kV according to patient size, use of iterative reconstruction technique) copyright 2011 [employer]- All Rights Reserved Chest X-Ray 04/19/19 06:00 IMPRESSION: Interval extubation. No pneumothorax. Assessment & Plan - Diagnosis (1) Respiratory arrest Is this a current diagnosis for this admission?: Yes (2) History of drug abuse Is this a current diagnosis for this admission?: Yes (3) Hypokalemia Is this a current diagnosis for this admission?: Yes (4) Hyperglycemia Is this a current diagnosis for this admission?: Yes (5) Acute hyperactive opioid intoxication delirium Is this a current diagnosis for this admission?: Yes (6) Opioid abuse with intoxication Is this a current diagnosis for this admission?: Yes (7) Opioid abuse Is this a current diagnosis for this admission?: Yes (8) Methamphetamine abuse Is this a current diagnosis for this admission?: Yes (9) Methamphetamine addiction Is this a current diagnosis for this admission?: Yes - Time Time Spent with patient: 35 or more minutes Total Critical Time (Minutes): 35 - 9923 Medications reviewed and adjusted accordingly: Yes Anticipated discharge: Acute Rehab - [facility] Within: when bed available - Inpatient Certification Based on my medical assessment, after consideration of the patient's comorbidities, presenting symptoms, or acuity I expect that the services needed warrant INPATIENT care.: No I certify that my determination is in accordance with my understanding of Medicare's requirements for reasonable and necessary INPATIENT services [42 CFR 412.3e].: Yes Post Hospital Care: D/C Cafeteria Supervisor Documentation, D/C or Transfer Summary - Plan Summary Plan Summary: 04.20.19: Patient has remained hemodynamically and neurologically stable. It is reasonable that she would have chest discomfort after the CPR that she received. Given her city for narcotic abuse I have started her on Toradol and given 1 dose IV. Added Robaxin and Neurontin for her back discomfort. Is currently being scheduled for transfer to the [facility] for acute drug rehabilitat ion program. She will be discharged from the ICU to there. At this point she is hemodynamically stable and medically cleared for transfer. Follow-up items will be active rehabilitation program, control of withdrawal symptoms, control of pain symptoms. I have placed her on oral Toradol for the next 3 to 4 days to attenuate any further discomfort. 04.19.19: Patient has successfully weaned from mechanical ventilation and is in her normal baseline state. Start Robaxin and Neurontin to help control and attenuate her pain. Obesity patient has a significant abuse problem and we have referred her to our psychiatric and case management services. We will obtain physical therapy to determine patient's ambulatory needs. We will attempt to have the patient evaluated for rehab. If not patient is seeking to leave and will discuss the possibility of outpatient treatment services. Continue supportive care. Patient seen in multidisciplinary rounds. Care of in ICU patient is ongoing and dynamic. This note represents a static representation of care in the last 12-24 hours. Orders given, completed and entered via computer are not always reflective of actual time done. Medical power of real estate associate attorney is: Patient requires ICU care secondary to
--- NOTE | 2019-04-20 08:10 | PDOC DISCHARGE SUMMARY ---
Impression - Admit/DC Date/PCP Admission Date/Primary Care Provider: 04/18/19 07:49 DARIO AGUERO MD Discharge Date: 04/20/19 - Discharge Diagnosis (1) Respiratory arrest Is this a current diagnosis for this admission?: Yes (2) History of drug abuse Is this a current diagnosis for this admission?: Yes (3) Hypokalemia Is this a current diagnosis for this admission?: Yes (4) Hyperglycemia Is this a current diagnosis for this admission?: Yes (5) Acute hyperactive opioid intoxication delirium Is this a current diagnosis for this admission?: Yes (6) Opioid abuse with intoxication Is this a current diagnosis for this admission?: Yes (7) Opioid abuse Is this a current diagnosis for this admission?: Yes (8) Methamphetamine abuse Is this a current diagnosis for this admission?: Yes (9) Methamphetamine addiction Is this a current diagnosis for this admission?: Yes (10) Non-cardiac chest pain Is this a current diagnosis for this admission?: Yes - Assessment Summary: 04.18.19: 38-year-old white female with a history of asthma and recreational drug use found down by bystanders. There is no EMS or family or bystanders in the emergency room for further information. Information obtained and given to nursing and ED personnel relate that patient was found not breathing. Bystanders initiated CPR. EMS found patient with pulse but shallow respirations and minimal breath sounds. Intubated with ketamine and Rocuronium. Initial glucose 221. No drug paraphernalia found on-site. In ED, had head CT which was negative for pathology. negative. No abnormal labs except for low K+. Given solu-medrol and Albuterol. Unable to obtain any history from patient. On ventilator. No elevation in Peak airway pressures. CXR unremarkable. She was admitted to the ICU on a ventilator. She was placed on Precedex to follow a neurological exam and she improved over time. She had no hemodynamic instability and tolerated a spontaneous breathing trial and was liberated from the ventilator a few hours after being admitted to the ICU. She endorsed inhaling multiple substances. She does not recall any other events. She remained domiciled in ICU and after discussion regarding her significant drug abuse agreed to go to the crisis center. She is reluctant to stay here any further and we advised that it may be beneficial for her to stay at least 1 more day given the respiratory events. She declines an [facility] is now currently evaluating her for acceptance to inpatient program. She had no unusual labs other than a positive urine screen for opiates cocaine methamphetamines. He was hemodynamically stable throughout her ICU course. No neurological changes. She is moving all extremities. - Additional Information Resuscitation Status: Full Code Discharge Diet: As Tolerated, Regular Discharge Activity: Activity As Tolerated Referrals: DARIO AGUERO MD [Primary Care Provider] - Prescriptions: Fluticasone/Vilanterol [Breo 200-25 Mcg Ellipta 14 Dose/Dpi] 1 inh IH DAILY 1 Days #1 inhaler Lamotrigine [Lamictal] 50 mg PO DAILY 7 Days #30 tab Lamotrigine [Lamictal 100 mg Tablet] 50 mg PO DAILY #30 tablet Lurasidone HCl [Latuda 40 mg Tablet] 40 mg PO DAILY 2 Days #30 tab Gabapentin [Neurontin 100 mg Capsule] 100 mg PO Q8 #90 cap Albuterol Sulfate [Proair HFA Inhalation Aerosol 8.5 gm MDI] 2 puff IH Q4HP PRN 1 Days #1 PRN Reason: Shortness Of Breath Methocarbamol [Robaxin 750 mg Tablet] 750 mg PO QID #30 tablet Montelukast Sodium [Singulair 10 mg Tablet] 10 mg PO QHS #30 tab Tiotropium [place] [Spiriva Respimat] 2 puff IH BID #90 cap Ketorolac Tromethamine [Toradol 10 mg Tablet] 10 mg PO Q6HP PRN #16 tablet PRN Reason: Home Medications: Albuterol Sulfate [Proair HFA Inhalation Aerosol 8.5 gm MDI] 2 puff IH Q4HP PRN 1 Days #1 04/19/19 Fluticasone/Vilanterol [Breo 200-25 Mcg Ellipta 14 Dose/Dpi] 1 inh IH DAILY 1 Days #1 inhaler 04/19/19 Gabapentin [Neurontin 100 mg Capsule] 100 mg PO Q8 #90 cap 04/19/19 Lamotrigine [Lamictal] 50 mg PO DAILY 7 Days #30 tab 04/19/19 Lurasidone HCl [Latuda 40 mg Tablet] 40 mg PO DAILY 2 Days #30 tab 04/19/19 Methocarbamol [Robaxin 750 mg Tablet] 750 mg PO QID #30 tablet 04/19/19 Montelukast Sodium [Singulair 10 mg Tablet] 10 mg PO QHS #30 tab 04/19/19 Tiotropium [place] [Spiriva Respimat] 2 puff IH BID #90 cap 04/19/19 Ketorolac Tromethamine [Toradol 10 mg Tablet] 10 mg PO Q6HP PRN #16 tablet 04/20/19 Lamotrigine [Lamictal 100 mg Tablet] 50 mg PO DAILY #30 tablet 04/20/19 History of Present Illiness History of Present Illness: 38-year-old white female with a history of asthma and recreational drug use found down by bystanders. There is no EMS or family or bystanders in the emergency room for further information. Information obtained and given to nursing and ED personnel relate that patient was found not breathing. Bystanders initiated CPR. EMS found patient with pulse but shallow respirations and minimal breath sounds. Intubated with ketamine and Rocuronium. Initial glucose 221. No drug paraphernalia found on-site. In ED, had head CT which was negative for pathology. negative. No abnormal labs except for low K+. Given solu-medrol and Albuterol. Unable to obtain any history from patient. On ventilator. No elevation in Peak airway pressures. CXR unremarkable. Hospital Course Hospital Course: See Summary above Physical Exam Vital Signs: Temp Pulse Resp BP Pulse Ox 99.1 F 76 19 92/52 L 100 04/19/19 12:00 04/19/19 12:00 04/19/19 14:00 04/19/19 12:05 04/19/19 14:00 Intake & Output 04/18/19 04/19/19 04/20/19 06:59 06:59 06:59 Intake Total 699 1500 1378 Output Total 2075 1300 Balance 699 -575 78 Weight 62.1 kg 59.6 kg Exam: See progress note from today Results Laboratory Results: WBC 9.1 10^3/uL (4.0-10.5) 04/19/19 03:53 RBC 4.31 10^6/uL (3.72-5.28) 04/19/19 03:53 Hgb 11.5 g/dL (12.0-15.5) L 04/19/19 03:53 Hct 35.5 % (36.0-47.0) L 04/19/19 03:53 MCV 82 fl (80-97) 04/19/19 03:53 MCH 26.8 pg (27.0-33.4) L 04/19/19 03:53 MCHC 32.5 g/dL (32.0-36.0) 04/19/19 03:53 RDW 17.0 % (11.5-14.0) H 04/19/19 03:53 Plt Count 326 10^3/uL (150-450) 04/19/19 03:53 Lymph % (Auto) 19.7 % (13-45) 04/19/19 03:53 Wilcox % (Auto) 7.9 % (3-13) 04/19/19 03:53 Eos % (Auto) 0.2 % (0-6) 04/19/19 03:53 Baso % (Auto) 0.2 % (0-2) 04/19/19 03:53 Absolute Neuts (auto) 6.6 10^3/uL (1.7-8.2) 04/19/19 03:53 Absolute Lymphs (auto) 1.8 10^3/uL (0.5-4.7) 04/19/19 03:53 Absolute Monos (auto) 0.7 10^3/uL (0.1-1.4) 04/19/19 03:53 Absolute Eos (auto) 0.0 10^3/uL (0.0-0.6) 04/19/19 03:53 Absolute Basos (auto) 0.0 10^3/uL (0.0-0.2) 04/19/19 03:53 Seg Neutrophils % 72.0 % (42-78) 04/19/19 03:53 PT 13.2 SEC (11.4-15.4) 04/18/19 11:14 INR 1.00 04/18/19 11:14 APTT 23.8 SEC (23.5-35.8) 04/18/19 11:14 Carbonic Acid 1.04 mmol/L (1.05-1.35) L 04/18/19 08:23 HCO3/H2CO3 Ratio 23:1 04/18/19 08:23 ABG pH 7.47 (7.35-7.45) H 04/18/19 08:23 ABG pCO2 34.6 mmHg (35-45) L 04/18/19 08:23 ABG pO2 165.1 mmHg (80-100) H 04/18/19 08:23 ABG HCO3 24.3 mmol/L (20-24) H 04/18/19 08:23 ABG Total CO2 25.4 mmol/L (21-25) H 04/18/19 08:23 ABG O2 Saturation 99.2 % (94-98) H 04/18/19 08:23 ABG Base Excess 1.0 mmol/L 04/18/19 08:23 VBG pH 7.23 (7.30-7.42) L 04/18/19 05:55 VBG pCO2 54.8 mmHg (35-63) 04/18/19 05:55 VBG HCO3 22.6 mmol/L (20-32) 04/18/19 05:55 VBG Base Excess -5.5 mmol/L 04/18/19 05:55 FiO2 40% 04/18/19 08:23 Sodium 142.9 mmol/L (137-145) 04/19/19 03:53 Potassium 4.6 mmol/L (3.6-5.0) 04/19/19 03:53 Chloride 109 mmol/L (98-107) H 04/19/19 03:53 Carbon Dioxide 27 mmol/L (22-30) 04/19/19 03:53 Anion Gap 7 (5-19) 04/19/19 03:53 BUN 13 mg/dL (7-20) 04/19/19 03:53 Creatinine 0.65 mg/dL (0.52-1.25) 04/19/19 03:53 Est GFR ( Amer) > 60 (>60) 04/19/19 03:53 Est GFR (MDRD) Non-Af > 60 (>60) 04/19/19 03:53 Glucose 112 mg/dL (75-110) H 04/19/19 03:53 POC Glucose 134 mg/dL (70-110) H 04/18/19 19:38 Hemoglobin A1c % 5.8 % (4.7-6.0) 04/19/19 03:53 Lactic Acid 3.9 mmol/L (0.7-2.1) H 04/18/19 05:55 Calcium 8.6 mg/dL (8.4-10.2) 04/19/19 03:53 Phosphorus 3.4 mg/dL (2.5-4.5) 04/18/19 11:14 Magnesium 2.6 mg/dL (1.6-2.3) H 04/18/19 11:14 Total Bilirubin 0.5 mg/dL (0.2-1.3) 04/19/19 03:53 Direct Bilirubin 0.1 mg/dL (0.0-0.4) 04/19/19 03:53 Neonat Total Bilirubin Not Reportable 04/19/19 03:53 Neonat Direct Bilirubin Not Reportable 04/19/19 03:53 Neonat Indirect Bili Not Reportable 04/19/19 03:53 GGT 17 U/L (8-78) 04/18/19 11:14 AST 39 U/L (14-36) H 04/19/19 03:53 ALT 43 U/L (<35) 04/19/19 03:53 Alkaline Phosphatase 56 U/L (38-126) 04/19/19 03:53 Ammonia 27.6 umol/L (9-33) 04/18/19 11:14 Creatine Kinase 241 U/L (30-135) H 04/18/19 11:14 Troponin I 0.018 ng/mL 04/18/19 11:14 Total Protein 6.2 g/dL (6.3-8.2) L 04/19/19 03:53 Albumin 3.2 g/dL (3.5-5.0) L 04/19/19 03:53 TSH 0.23 uIU/mL (0.47-4.68) L 04/18/19 11:14 Serum HCG, Qual NEGATIVE (NEGATIVE) 04/18/19 05:55 Urine Color YELLOW 04/18/19 09:15 Urine Appearance CLEAR 04/18/19 09:15 Urine pH 8.0 (5.0-9.0) 04/18/19 09:15 Ur Specific [place] 1.017 04/18/19 09:15 Urine Protein NEGATIVE mg/dL (NEGATIVE) 04/18/19 09:15 Urine Glucose (UA) NEGATIVE mg/dL (NEGATIVE) 04/18/19 09:15 Urine Ketones NEGATIVE mg/dL (NEGATIVE) 04/18/19 09:15 Urine Blood NEGATIVE (NEGATIVE) 04/18/19 09:15 Urine Nitrite NEGATIVE (NEGATIVE) 04/18/19 09:15 Urine Nitrite (Reflex) NEGATIVE (NEGATIVE) 04/18/19 06:05 Urine Bilirubin NEGATIVE (NEGATIVE) 04/18/19 09:15 Urine Urobilinogen NEGATIVE mg/dL (<2.0) 04/18/19 09:15 Ur Leukocyte Esterase NEGATIVE (NEGATIVE) 04/18/19 09:15 Leukocyte Esterase Rfl NEGATIVE (NEGATIVE) 04/18/19 06:05 Urine WBC (Auto) 1 /HPF 04/18/19 09:15 Urine RBC (Auto) 1 /HPF 04/18/19 09:15 U Hyaline Cast (Auto) 15 /LPF 04/18/19 06:05 Urine WBC (Reflex) 11 /HPF 04/18/19 06:05 Squamous Epi Cells Auto <1 /HPF 04/18/19 09:15 Urine Mucus (Auto) RARE /LPF 04/18/19 09:15 Urine Ascorbic Acid NEGATIVE (NEGATIVE) 04/18/19 09:15 Salicylates < 1.0 mg/dL (2.0-20.0) L 04/18/19 05:55 Urine Opiates Screen Cancelled 04/18/19 09:15 Urine Methadone Screen Cancelled 04/18/19 09:15 Acetaminophen < 10 ug/mL (10-30) L 04/18/19 05:55 Ur Barbiturates Screen Cancelled 04/18/19 09:15 Ur Phencyclidine Scrn Cancelled 04/18/19 09:15 Ur Amphetamines Screen Cancelled 04/18/19 09:15 U Benzodiazepines Scrn Cancelled 04/18/19 09:15 Urine Cocaine Screen Cancelled 04/18/19 09:15 U Marijuana (THC) Screen Cancelled 04/18/19 09:15 Serum Alcohol < 10 mg/dL (NONE DETECTED) 04/18/19 05:55 04/18/19 04/18/19 05:55 11:14 Troponin I < 0.012 0.018 Impressions: Chest X-Ray 04/18/19 05:44 IMPRESSION: 1. Tip of an endotracheal tube is 1.7 cm from the karishma. Recommend 2 cm retraction of the endotracheal tube. 2. No acute cardiopulmonary findings. Head CT 04/18/19 06:27 IMPRESSION: No acute intracranial abnormality TECHNICAL DOCUMENTATION: Quality ID # 436: Final reports with documentation of one or more dose reduction techniques (e.g., Automated exposure control, adjustment of the mA and/or kV according to patient size, use of iterative reconstruction technique) copyright 2011 [employer]- All Rights Reserved Chest X-Ray 04/19/19 06:00 IMPRESSION: Interval extubation. No pneumothorax. Plan Health Concerns: Significant drug abuse-Heroin, Methamphetamines, Cocaine Plan of Treatment: Discharge to [facility] Pain control with neurontin, robaxin and toradol for 3-4 days. Time Spent: Greater than 30 Minutes - 40 Stroke Is this a Stroke Patient?: No Acute Heart Failure - Is this a Heart Failure Patient?: No
[2019-04-20 08:13] VITALS: BP 129/79
[2019-04-20] MEDS ORDERED: KETOROLAC TROMETHAMINE INJ/PF 30 MG/1 ML SDV IV ONE (08:30)
[2019-04-20] MEDS: METHOCARBAMOL 750 MG TABLET PO SCH (09:22)
[2019-04-20] MEDS: LAMOTRIGINE 100 MG TABLET PO SCH (09:22)
[2019-04-20] MEDS: LURASIDONE HCL 40 MG TABLET PO SCH (09:22)
--- NOTE | 2019-04-20 11:18 | PSYCHOLOGICAL NOTE ---
Psych Note - Psych Note Date seen by psych provider: 04/19/19 Time seen by psych provider: 16:30 Psych Note: Reason for consult: Substance Abuse Behavioral health was contacted to provide patient with substance abuse treatment options. Patient was speaking with mother when clinician entered the room. Patient was initially reluctant to seek substance abuse treatment. Patient has a significant history of heroin use. Patient stated she began using heroin to self-medicate chronic pain and emotional distress. Patient became emotional as she spoke of my mom and dad killed my baby. Patient did not elaborate further, however engaged lovingly with mom despite the trauma of the incident. Patient agreed to voluntary placement at [facility]. Patient is alert and oriented to person, place, time and circumstance. Mood is liable- as to be expected with active withdrawal. Patient would engage pleasantly with clinician. Patient denies suicidal and homicidal ideation. Delusions are absent and behavior is congruent with an intact- reality based presentation (i.e. organized and linear thought processes). Patient denies auditory and visual hallucinations. There is no observed behavior that suggests patient is responding to internal stimuli. Eye contact is good. Conversational speech is within normal rate, tone, and prosody. Intellectual ability appears to be within average range. Attention and concentration are fair. Insight, judgment, and impulse control are fair. DSM Diagnosis: Substance Use Disorder Medication recommendations per [facility] contracted psychiatrist Dr. Kwan MAK is as follows: NONE Impression/Plan: Patient is cleared from acute psychiatric services. Patient does not meet IVC criteria per [place] GS 122C. At this time, patient is demonstrating insight and judgment into current situation and is able to thoughtfully and purposefully participate in plan of care development. Patient denies suicidal and homicidal ideation. Patient denies auditory and visual hallucinations. Patient identified a support system in mother and children. Patient was accepted to [facility] for substance abuse treatment. [facility] is actively facilitating the transfer. Dr. Oliva was consulted on the care and management of this patient; hospitalist was made aware.
[2019-04-20] MEDS ORDERED: KETOROLAC TROMETHAMINE 10 MG TABLET PO PRN (14:00)
== END 2019-04-20 12:24 | DRG 208 ==
LOC: ER 05:39 → EH 07:49 → ICU 08:55
PROVIDERS: ADMIT Internal Medicine Critical Care Medicine; ATTEND Internal Medicine Critical Care Medicine
PROC: 5A1935Z Respiratory Ventilation, Less than 24 Consecutive Hours (ICD-10-PCS; principal; 2019-04-18)
PROC: 3E0234Z Introduction of Serum, Toxoid and Vaccine into Muscle, Percutaneous Approach (ICD-10-PCS; 2019-04-20)
DX: J96.00 Acute respiratory failure, unspecified whether with hypoxia or hypercapnia (principal); F11.121 Opioid abuse with intoxication delirium; F15.20 Other stimulant dependence, uncomplicated; J45.909 Unspecified asthma, uncomplicated; E87.6 Hypokalemia; R73.9 Hyperglycemia, unspecified; F31.9 Bipolar disorder, unspecified; Z23 Encounter for immunization
CPT/HCPCS: 36415; 51702; 70450; 71045; 80053; 80307; 80361; 81001; 82140; 82550; 82803; 82962; 82977; 83036; 83605; 83735; 84100; 84443; 84484; 84703; 85025; 85610; 85730; 87040; 87070; 87077; 87086; 87186; 87205; 90686; 94002; 94640; 96361; 96374; 96375; 99285; J1644; J1885; J2250; J2704; J3490; J7030; J7120; J7620

== ENCOUNTER 2019-11-23 08:50 | Emergency (ER) | payer MEDICAID ==
[2019-11-23 09:55] LABS: ABSOLUTE EOSINOPHILS # (AUTO) 1.1 10^3/uL (0.0-0.6); ABSOLUTE LYMPHOCYTES (AUTO) 1.7 10^3/uL (0.5-4.7); ABSOLUTE MONOCYTES (AUTO) 0.5 10^3/uL (0.1-1.4); ABSOLUTE NEUT (AUTO) 4.5 10^3/uL (1.7-8.2); BASOPHILS % (AUTO) 0.6 % (0-2); EOSINOPHILS % (AUTO) 14.2 % (0-6); HEMATOCRIT 40.3 % (36.0-47.0); HEMOGLOBIN 13.2 g/dL (12.0-15.5); LYMPHOCYTES % (AUTO) 21.7 % (13-45); MEAN CORPUSCULAR HEMOGLOBIN 27.2 pg (27.0-33.4); MEAN CORPUSCULAR HGB CONC 32.8 g/dL (32.0-36.0); MEAN CORPUSCULAR VOLUME 83 fl (80-97); PLATELET COUNT 385 10^3/uL (150-450); RED BLOOD COUNT 4.87 10^6/uL (3.72-5.28); RED CELL DISTRIBUTION WIDTH 13.2 % (11.5-14.0); SEGMENTED NEUTROPHILS % (AUTO) 57.5 % (42-78); TOTAL CELLS COUNTED % (AUTO) 100 %; WHITE BLOOD COUNT 7.8 10^3/uL (4.0-10.5)
--- NOTE | 2019-11-23 09:59 | RADIOLOGY REPORT (SQ) ---
EXAM DESCRIPTION: CHEST SINGLE VIEW IMAGES COMPLETED DATE/TIME: 11/23/2019 9:42 am REASON FOR STUDY: cardiac workup COMPARISON: PA and lateral views of the chest from 06/11/2019. EXAM PARAMETERS: NUMBER OF VIEWS: One view. TECHNIQUE: An AP view of the chest was obtained. RADIATION DOSE: NA LIMITATIONS: None. FINDINGS: LUNGS AND PLEURA: Asymmetric opacity in the inferior aspect of the right hemithorax. Ther e is no sizable pleural effusion or pneumothorax. MEDIASTINUM AND HILAR STRUCTURES: No mediastinal or hilar contour abnormality. HEART AND VASCULAR STRUCTURES: The cardiac silhouette and pulmonary vasculature are within normal jauregui its. BONES: No acute findings. HARDWARE: None in the chest. OTHER: No other finding. IMPRESSION: Asymmetric opacity in the inferior aspect of the right hemithorax. Clinical correlation to exclude a pneumonia is recommended. TECHNICAL DOCUMENTATION: JOB ID: [id number] 2010 [employer]- All Rights Reserved Reading location - IP/workstation name: [email or web address]
[2019-11-23 10:28] LABS: ALBUMIN 3.2 g/dL (3.5-5.0); ALKALINE PHOSPHATASE 64 U/L (38-126); ASPARTATE AMINO TRANSFERASE 22 U/L (14-36); BILIRUBIN,TOTAL 0.3 mg/dL (0.2-1.3); BLOOD UREA NITROGEN 9 mg/dL (7-20); CALCIUM 8.7 mg/dL (8.4-10.2); CREATINE KINASE 57 U/L (30-135); GLUCOSE 107 mg/dL (75-110); POTASSIUM 4.3 mmol/L (3.6-5.0); TOTAL PROTEIN 6.6 g/dL (6.3-8.2)
[2019-11-23 10:33] LABS: CARBON DIOXIDE 32 mmol/L (22-30); CHLORIDE 101 mmol/L (98-107)
[2019-11-23 10:35] LABS: ANION GAP 4 (5-19)
[2019-11-23 10:38] LABS: CREATINE KINASE MB 0.45 ng/mL (<4.55)
[2019-11-23 10:40] LABS: TROPONIN I < 0.012 ng/mL
[2019-11-23] MEDS ORDERED: PREDNISONE 20 MG TABLET PO ONE (10:49)
[2019-11-23] MEDS ORDERED: ALBUTEROL SULFATE 0.083% NEB 2.5 MG/3 ML AMPUL NEB ONE (10:49)
[2019-11-23] MEDS ORDERED: AMOXICILLIN TR/POT CLAVULANATE 875-125 MG TAB PO ONE (10:50)
--- NOTE | 2019-11-23 11:14 | ER Document Report ---
ED General - General Chief Complaint: Breathing Difficulty Stated Complaint: SHORT OF BREATH,COUGH Notes: 39-year-old female presents emergency department complaining of cough, wheezing and shortness of breath as well as right-sided chest pain that worsens with cough and deep breath for the past week. Denies chest pain anywhere other than her right side. Denies fevers, denies known coronavirus exposure. Admits a history of asthma. States that her inhalers are no longer working. TRAVEL OUTSIDE OF THE [place] IN LAST 30 DAYS: No - Related Data Allergies/Adverse Reactions: Sulfa (Sulfonamide Antibiotics) Allergy (Verified 06/25/11 08:24) Past Medical History - General Information source: Patient - Social History Smoking Status: Never Smoker Chew tobacco use (# tins/day): No Frequency of alcohol use: None Drug Abuse: None Family History: Reviewed & Not Pertinent Patient has homicidal ideation: No Pulmonary Medical History: Reports: Hx Asthma, Hx Pneumonia Neurological Medical History: Reports: Hx Migraine Renal/ Medical History: Denies: Hx Peritoneal Dialysis Psychiatric Medical History: Reports: Hx Bipolar Disorder, Hx Depression Past Surgical History: Reports: Hx Tubal Ligation - Immunizations Hx Diphtheria, Pertussis, Tetanus Vaccination: Yes Review of Systems - Review of Systems Constitutional: No symptoms reported EENT: Nose congestion, Nose discharge, Sinus pressure Cardiovascular: See HPI, Chest pain Respiratory: See HPI, Cough, Hurts to breathe, Short of breath, Wheezing -: Yes All other systems reviewed and negative Physical Exam - Vital signs Vitals: Temp 98.2 F 11/23/19 08:51 Interpretation: Tachypneic - Notes Notes: GENERAL: Alert, interacts well. Very mild shortness of breath. HEAD: Normocephalic, atraumatic EYES: Pupils equal, round and reactive to light, extraocular movements intact. ENT: Oral mucosa moist, tongue midline. NECK: Full range of motion, supple, trachea midline. LUNGS: Audible wheezing even without a stethoscope, inspiratory squeaking, expiratory wheezing diffusely with the stethoscope, mildly tachypneic but still able to speak in full sentences. No accessory muscle use in order to aid respirations. HEART: Regular rate and rhythm, no murmurs, gallops, rubs. ABDOMEN: Soft, nontender, nondistended, bowel sounds present in all 4 quadrants. EXTREMITIES: Moves all 4 extremities spontaneously, no edema, radial and dors paty pedis pulses 2/4 bilaterally. No cyanosis. NEUROLOGICAL: Alert and oriented x3, normal speech. PSYCH: Normal mood, normal affect. SKIN: Warm, Dry, normal turgor, no rashes or lesions noted. Course - Re-evaluation Re-evalutation: 11/23/19 11:17 CBC unremarkable, CMP grossly unremarkable, cardiac enzymes initially negative, patient does not need repeat troponin, the chest pain is exactly in the same location as where her pneumonia is, patient has no risk factors for early cardiac disease. EKG is nonischemic. Chest x-ray shows right lower lobe infiltrate. Given symptoms I will treat this as a community-acquired pneumonia. Patient will be swab for coronavirus given the current pandemic. 11/23/19 11:18 Also given albuterol breathing treatments and steroids. Patient has an albuterol inhaler at home. Discharged home. - Vital Signs Vital signs: Temp Pulse Resp BP Pulse Ox 98.2 F 79 22 H 125/83 93 11/23/19 09:45 11/23/19 09:45 11/23/19 09:45 11/23/19 09:45 11/23/19 09:45 - Laboratory Result Diagrams: 11/23/19 09:32 11/23/19 09:32 Laboratory results interpreted by me: 11/23/19 11/23/19 09:32 09:32 Eos % (Auto) 14.2 H Absolute Eos (auto) 1.1 H Sodium 136.9 L Carbon Dioxide 32 H Anion Gap 4 L Creatinine 0.48 L Albumin 3.2 L - EKG Interpretation by Me Additional EKG results interpreted by me: 11/23/19 11:17 EKG shows sinus rhythm at a rate of 69, normal axis, normal intervals, no ST segment elevations or depressions, isolated T wave flattening in 3 and V1 which are nonspecific per my interpretation. Discharge - Discharge Clinical Impression: Right lower lobe pneumonia Qualifiers: Pneumonia type: due to unspecified organism Qualified Code(s): J18.9 - Pneumonia, unspecified organism Condition: Stable Disposition: HOME, SELF-CARE Additional Instructions: Pneumonia Your examination indicates that you have pneumonia. This is an infection of the lung tissue, usually caused by bacteria or a virus. Symptoms include cough, fever, shaking chills, chest pain, shortness of breath, and coughing up bloody sputum. Treatment for bacterial pneumonia includes rest, antibiotics for 10 to 14 days, increasing your clear liquid intake, a cool mist humidifier at your bedside, and fever medication. Often, a repeat chest X-ray is performed in a few weeks--even if you feel better--to ascertain whether the infection has completely resolved and no underlying lung problem is present. You should call the physician if you develop persistent vomiting, high fever that does not respond to fever medication, increasing shortness of breath, confusion, or lethargy. Also, failure to improve within two to three days is an indication for re-examination. You were tested for coronavirus (COVID 19) but these results may take 7 days or more to come back. Please stay in your house until they are resulted back or until you have been completely symptom-free for at least 3 days. Please take your steroids as directed until they are gone. Please take the antibiotic as directed until it is gone. Please use your albuterol inhaler 2 puffs every 4 hours as needed for wheezing and shortness of breath. If you need to use it more often than every 3 hours please return to the emergency depart ment for recheck. Prescriptions: Albuterol Sulfate [Albuterol Sulfate Hfa] 2 gm IH Q4HP PRN #1 [email or web address] PRN Reason: Amoxicillin/Potassium Clav [Augmentin 875-125 Tablet] 1 tab PO Q12 #14 tablet Prednisone [Deltasone 20 mg Tablet] 40 mg PO DAILY #10 tablet
[2019-11-23 11:44] VITALS: BP 134/95
--- NOTE | 2019-11-23 15:38 | EKG REPORT ---
SEVERITY:- NORMAL ECG - SINUS RHYTHM : Confirmed by: Joey Goldstein MD 23-Nov-2019 15:37:10
== END 2019-11-23 11:33 | disposition home or self-care (01) ==
LOC: ER 08:50
DX: J18.9 Pneumonia, unspecified organism (principal); R06.00 Dyspnea, unspecified; R06.02 Shortness of breath; Z20.828 Contact with and (suspected) exposure to other viral communicable diseases; Z98.51 Tubal ligation status; Z88.2 Allergy status to sulfonamides
CPT/HCPCS: 93005; 94640; 99284; 36415; 82553; 82550; 85025; 87635; 80053; 84484; 71045; 93010; J7512; J3490; C9803

== ENCOUNTER 2019-12-23 03:40 | Emergency (ER) | payer MEDICAID ==
[2019-12-23 03:55] VITALS: BP 153/93
[2019-12-23] MEDS ORDERED: ONDANSETRON 4 MG TAB.RAPDIS PO ONE (04:02)
[2019-12-23] MEDS ORDERED: IBUPROFEN 600 MG TABLET PO ONE (04:02)
== END 2019-12-23 06:42 | disposition left against medical advice (07) ==
LOC: EEVIPCON 03:40 → ER 03:40
DX: Z53.21 Procedure and treatment not carried out due to patient leaving prior to being seen by health care provider (principal); R51 Headache
CPT/HCPCS: S0119; J3490

== ENCOUNTER 2019-12-30 05:10 | Emergency (ER) | payer MEDICAID ==
[2019-12-30 06:33] LABS: ABSOLUTE EOSINOPHILS # (AUTO) 0.4 10^3/uL (0.0-0.6); ABSOLUTE LYMPHOCYTES (AUTO) 1.7 10^3/uL (0.5-4.7); ABSOLUTE MONOCYTES (AUTO) 0.5 10^3/uL (0.1-1.4); ABSOLUTE NEUT (AUTO) 3.4 10^3/uL (1.7-8.2); BASOPHILS % (AUTO) 0.6 % (0-2); HEMATOCRIT 39.6 % (36.0-47.0); HEMOGLOBIN 12.9 g/dL (12.0-15.5); MEAN CORPUSCULAR HEMOGLOBIN 26.8 pg (27.0-33.4); MEAN CORPUSCULAR HGB CONC 32.5 g/dL (32.0-36.0); MEAN CORPUSCULAR VOLUME 82 fl (80-97); MONOCYTES % (AUTO) 8.4 % (3-13); PLATELET COUNT 334 10^3/uL (150-450); RED BLOOD COUNT 4.81 10^6/uL (3.72-5.28); RED CELL DISTRIBUTION WIDTH 14.3 % (11.5-14.0); TOTAL CELLS COUNTED % (AUTO) 100 %
[2019-12-30 06:43] LABS: APPEARANCE,URINE SLIGHTLY-CLOUDY; BILIRUBIN,URINE NEGATIVE (NEGATIVE); COLOR,URINE YELLOW; GLUCOSE, URINE NEGATIVE (NEGATIVE); KETONES,URINE NEGATIVE (NEGATIVE); LEUKOCYTE ESTERASE,URINE NEGATIVE (NEGATIVE); NITRITE,URINE NEGATIVE (NEGATIVE); PROTEIN,URINE NEGATIVE (NEGATIVE); URINE SPECIFIC GRAVITY 1.026
[2019-12-30 06:56] LABS: ALBUMIN 3.7 g/dL (3.5-5.0); ALKALINE PHOSPHATASE 71 U/L (38-126); ASPARTATE AMINO TRANSFERASE 28 U/L (14-36); BILIRUBIN,TOTAL 0.2 mg/dL (0.2-1.3); BLOOD UREA NITROGEN 14 mg/dL (7-20); CALCIUM 9.1 mg/dL (8.4-10.2); GLUCOSE 98 mg/dL (75-110); TOTAL PROTEIN 6.7 g/dL (6.3-8.2)
[2019-12-30 06:58] LABS: URINE BARBITURATES SCREEN NEGATIVE; URINE BENZODIAZEPINES SCREEN NEGATIVE; URINE COCAINE SCREEN NEGATIVE; URINE MARIJUANA (THC) SCREEN NEGATIVE; URINE METHADONE SCREEN NEGATIVE; URINE PHENCYCLIDINE SCREEN NEGATIVE
[2019-12-30 07:02] LABS: CARBON DIOXIDE 33 mmol/L (22-30); CHLORIDE 103 mmol/L (98-107)
[2019-12-30 07:04] LABS: ANION GAP 3 (5-19)
--- NOTE | 2019-12-30 07:06 | ER Document Report ---
ED General - General Chief Complaint: Overdose Stated Complaint: POSS OVERDOSE Time Seen by Provider: 12/30/19 05:16 Primary Care Provider: YANIV WHITE PA [Primary Care Provider] - Follow up as needed Mode of Arrival: Medic Information source: Patient Notes: 39-year-old female patient presented to the emergency department after overdosing on heroin. Patient reports she snorted heroin just prior to arrival. She states she must of taken too much. She denies any suicidal intent. She does report that she has a history of heroin abuse, states she has had multiple overdoses in the past and one time she had to be intubated and admitted to the ICU. She does show interest in going to detox. She is requesting references for detox centers. Patient given information about [facility], patient states she will not go there as they treated her poorly the last time she was there. She was given Narcan by EMS and has been alert and oriented since that time. TRAVEL OUTSIDE OF THE [place] IN LAST 30 DAYS: No - Related Data Allergies/Adverse Reactions: Sulfa (Sulfonamide Antibiotics) Allergy (Verified 06/25/11 08:24) Past Medical History - General Information source: Patient - Social History Smoking Status: Current Every Day Smoker Chew tobacco use (# tins/day): No Frequency of alcohol use: Occasional Drug Abuse: Heroin Family History: Reviewed & Not Pertinent Patient has homicidal ideation: No Pulmonary Medical History: Reports: Hx Asthma, Hx Pneumonia Neurological Medical History: Reports: Hx Migraine Renal/ Medical History: Denies: Hx Peritoneal Dialysis Psychiatric Medical History: Reports: Hx Bipolar Disorder, Hx Depression Past Surgical History: Reports: Hx Tubal Ligation - Immunizations Hx Diphtheria, Pertussis, Tetanus Vaccination: Yes Review of Systems - Review of Systems Constitutional: No symptoms reported EENT: No symptoms reported Cardiovascular: No symptoms reported Respiratory: No symptoms reported Gastrointestinal: No symptoms reported Genitourinary: No symptoms reported Female Genitourinary: No symptoms reported Musculoskeletal: No symptoms reported Skin: No symptoms reported Hematologic/Lymphatic: No symptoms reported Neurological/Psychological: No symptoms reported Physical Exam - Vital signs Vitals: Temp 98.6 F 12/30/19 05:10 - Notes Notes: PHYSICAL EXAMINATION: GENERAL: Appears older than stated age, disheveled. HEAD: Atraumatic, normocephalic. EYES: Pupils equal round and reactive to light, extraocular movements intact, conjunctiva are normal. ENT: Nares patent, oropharynx clear without exudates. Moist mucous membranes. NECK: Normal range of motion, supple without lymphadenopathy LUNGS: Breath sounds clear to auscultation bilaterally and equal. No wheezes rales or rhonchi. HEART: Regular rate and rhythm without murmurs ABDOMEN: Soft, nontender, nondistended abdomen. No guarding, no rebound. No m asses appreciated. Female : deferred Musculoskeletal: Normal range of motion, no pitting or edema. No cyanosis. NEUROLOGICAL: Cranial nerves grossly intact. Normal speech, normal gait. Normal sensory, motor exams PSYCH: Normal mood, normal affect. SKIN: Warm, Dry, normal turgor, no rashes or lesions noted. Course - Re-evaluation Re-evalutation: 12/30/19 07:45 Patient has been held in the emergency department for several hours. Her laboratory studies are reassuring. She has not had any somnolence or apnea. She is ready to go home. A list of resources will be given to her. - Vital Signs Vital signs: Temp Pulse Resp BP Pulse Ox 98.6 F 97 17 108/75 98 12/30/19 07:43 12/30/19 07:43 12/30/19 07:43 12/30/19 07:43 12/30/19 07:43 - Laboratory Result Diagrams: 12/30/19 06:23 12/30/19 06:23 Laboratory results interpreted by me: 12/30/19 12/30/19 12/30/19 06:23 06:23 06:23 MCH 26.8 L RDW 14.3 H Eos % (Auto) 7.0 H Carbon Dioxide 33 H Anion Gap 3 L Urine Urobilinogen 2.0 H Discharge - Discharge Clinical Impression: Heroin overdose Qualifiers: Encounter type: initial encounter Injury intent: accidental or unintentional Qualified Code(s): T40.1X1A - Poisoning by heroin, accidental (unintentional), initial encounter Condition: Stable Disposition: HOME, SELF-CARE Additional Instructions: You weree seen in the emergency department after overdosing on heroin. The paramedics had to revive you with Narcan. Had a police and paramedics not found to you you would have . Please consider going to detox so you can stop using heroin immediately. A list of resources was given to you. Return to the emergency department with any new or worsening symptoms. Referrals: YANIV WHITE PA [Primary Care Provider] - Follow up as needed
[2019-12-30 07:45] VITALS: BP 108/75
--- NOTE | 2019-12-30 17:25 | EKG REPORT ---
SEVERITY:- NORMAL ECG - SINUS RHYTHM : Confirmed by: Ninfa Espinoza MD 30-Dec-2019 17:24:57
== END 2019-12-30 07:43 | disposition home or self-care (01) ==
LOC: ER 05:10
DX: T40.1X1A Poisoning by heroin, accidental (unintentional), initial encounter (principal); Y92.810 Car as the place of occurrence of the external cause; F17.200 Nicotine dependence, unspecified, uncomplicated; J45.909 Unspecified asthma, uncomplicated; Z88.2 Allergy status to sulfonamides
CPT/HCPCS: 36415; 80053; 80307; 81001; 85025; 93005; 93010; 99284

== ENCOUNTER 2020-01-21 02:25 | Emergency (ER) | payer MEDICAID ==
[2020-01-21] MEDS ORDERED: NORMAL SALINE 1000 ML 1,000 ML IV ONE (02:34)
[2020-01-21 03:39] LABS: ABSOLUTE BASOPHILS # (AUTO) 0.1 10^3/uL (0.0-0.2); ABSOLUTE EOSINOPHILS # (AUTO) 0.3 10^3/uL (0.0-0.6); ABSOLUTE LYMPHOCYTES (AUTO) 1.4 10^3/uL (0.5-4.7); ABSOLUTE MONOCYTES (AUTO) 0.6 10^3/uL (0.1-1.4); ABSOLUTE NEUT (AUTO) 4.7 10^3/uL (1.7-8.2); BASOPHILS % (AUTO) 0.9 % (0-2); EOSINOPHILS % (AUTO) 4.5 % (0-6); HEMATOCRIT 38.7 % (36.0-47.0); HEMOGLOBIN 13.1 g/dL (12.0-15.5); LYMPHOCYTES % (AUTO) 20.1 % (13-45); MEAN CORPUSCULAR HEMOGLOBIN 27.5 pg (27.0-33.4); MEAN CORPUSCULAR HGB CONC 33.8 g/dL (32.0-36.0); MEAN CORPUSCULAR VOLUME 81 fl (80-97); PLATELET COUNT 370 10^3/uL (150-450); RED BLOOD COUNT 4.75 10^6/uL (3.72-5.28); RED CELL DISTRIBUTION WIDTH 14.7 % (11.5-14.0); SEGMENTED NEUTROPHILS % (AUTO) 65.5 % (42-78); TOTAL CELLS COUNTED % (AUTO) 100 %; WHITE BLOOD COUNT 7.2 10^3/uL (4.0-10.5)
[2020-01-21 03:41] LABS: ALBUMIN 3.9 g/dL (3.5-5.0); ALKALINE PHOSPHATASE 67 U/L (38-126); ANION GAP 9 (5-19); ASPARTATE AMINO TRANSFERASE 50 U/L (14-36); BILIRUBIN,TOTAL 0.6 mg/dL (0.2-1.3); BLOOD UREA NITROGEN 20 mg/dL (7-20); CALCIUM 9.5 mg/dL (8.4-10.2); CARBON DIOXIDE 26 mmol/L (22-30); CHLORIDE 102 mmol/L (98-107); GLUCOSE 103 mg/dL (75-110); TOTAL PROTEIN 6.9 g/dL (6.3-8.2)
[2020-01-21 03:42] LABS: ALCOHOL < 10 mg/dL (NONE DETECTED)
[2020-01-21 03:45] LABS: APPEARANCE,URINE SLIGHTLY-CLOUDY; BILIRUBIN,URINE NEGATIVE (NEGATIVE); COLOR,URINE YELLOW; GLUCOSE, URINE NEGATIVE (NEGATIVE); KETONES,URINE TRACE mg/dL (NEGATIVE); LEUKOCYTE ESTERASE,URINE SMALL (NEGATIVE); NITRITE,URINE NEGATIVE (NEGATIVE); PROTEIN,URINE 30 mg/dL (NEGATIVE); URINE SPECIFIC GRAVITY 1.027; UROBILINOGEN,URINE NEGATIVE mg/dL (<2.0)
--- NOTE | 2020-01-21 04:47 | ER Document Report ---
Entered by KEL RICHARDS SCRIBE 01/21/20 0233 Acting as scribe for:LLUVIA SEPULVEDA IV, MD ED Substance Abuse / Acc. OD - General Chief Complaint: Possible Overdose Stated Complaint: POSSIBLE OVERDOSE Time Seen by Provider: 01/21/20 02:28 Primary Care Provider: YANIV WHITE PA [Primary Care Provider] - Follow up as needed Mode of Arrival: Medic Information source: Emergency Med Personnel Notes: This 39 year old female patient brought in by EMS presents to the ED today with complaints of possible heroin overdose that occurred just prior to arrival. According to ED nurse, patient was reportedly found unconscious in her car by [employer]. EMS administered 1 mg Narcan IN and the patient became more responsive. Patient admits to using heroin daily per ED nurse. Patient was seen here about x3 weeks ago with the same complaint. TRAVEL OUTSIDE OF THE [place] IN LAST 30 DAYS: No - Related Data Allergies/Adverse Reactions: Sulfa (Sulfonamide Antibiotics) Allergy (Verified 06/25/11 08:24) Past Medical History - General Information source: Emergency Med Personnel, [facility] Records - Social History Smoking Status: Unknown if Ever Smoked Smoking Education Provided: No Drug Abuse: Heroin Family History: Reviewed & Not Pertinent Pulmonary Medical History: Reports: Hx Asthma, Hx Pneumonia Neurological Medical History: Reports: Hx Migraine Psychiatric Medical History: Reports: Hx Bipolar Disorder, Hx Depression Past Surgical History: Reports: Hx Tubal Ligation - Immunizations Hx Diphtheria, Pertussis, Tetanus Vaccination: Yes Review of Systems - Review of Systems Constitutional: See HPI EENT: No symptoms reported Cardiovascular: No symptoms reported Respiratory: No symptoms reported Gastrointestinal: No symptoms reported Genitourinary: No symptoms reported Female Genitourinary: No symptoms reported Musculoskeletal: No symptoms reported Skin: No symptoms reported Hematologic/Lymphatic: No symptoms reported Neurological/Psychological: No symptoms reported -: Yes All other systems reviewed and negative Physical Exam - Vital signs Vitals: Resp 26 H 01/21/20 02:25 - General General appearance: Other - Somnolent, but arousable - HEENT Head: Normocephalic, Atraumatic - Respiratory Respiratory status: No respiratory distress Chest status: Nontender Breath sounds: Normal Chest palpation: Normal - Cardiovascular Rhythm: Regular, Tachycardia Heart sounds: Normal auscultation Friction rub: No Gallop: None auscultated - Abdominal Inspection: Normal Distension: No distension Bowel sounds: Normal Tenderness: Nontender - Abdomen soft Organomegaly: No organomegaly - Back Back: Normal, Nontender - Extremities General upper extremity: Normal inspection General lower extremity: Normal inspection - Neurological Neuro grossly intact: Yes - Psychological Associated symptoms: Normal affect, Normal mood - Skin Skin Temperature: Warm Skin Moisture: Dry Skin Color: Normal Course - Vital Signs Vital signs: Temp Pulse Resp BP Pulse Ox 99.5 F 15 116/69 92 01/21/20 02:31 01/21/20 04:01 01/21/20 04:01 01/21/20 04:01 - Laboratory Result Diagrams: 01/21/20 02:35 01/21/20 02:35 Laboratory results interpreted by me: 01/21/20 01/21/20 01/21/20 02:35 02:35 03:30 RDW 14.7 H AST 50 H ALT 41 H Urine Protein 30 H Urine Ketones TRACE H Ur Leukocyte Esterase SMALL H Urine Ascorbic Acid 40 H Discharge - Discharge Clinical Impression: Accidental drug overdose Qualifiers: Encounter type: initial encounter Qualified Code(s): T50.901A - Poisoning by unspecified drugs, medicaments and biological substances, accidental (unintentional), initial encounter Condition: Stable Disposition: HOME, SELF-CARE Additional Instructions: Return to the Emergency Department without delay if any worse. HOME CARE INSTRUCTIONS & INFORMATION: Thank you for choosing us for your medical needs. We hope you're satisfied with the care you received. After you leave, you must properly care for your problem and, at the same time, observe its progress. Any condition can change. Some illnesses can change rapidly over hours or days. If your condition worsens, return to the Emergency Department or see your physician promptly. ABOUT YOUR X-RAYS AND EKG'S: If you had an EKG or X-rays taken, they have been read by the Emergency Physician. The X-rays and EKG's will also be read by a Radiologist or Supervising Editor Trailer within 24 hours. If discrepancies are noted, you will be notified by telephone. Please be certain the ED has a correct telephone number & address where you can be reached. Also, realize that some fractures or abnormalities do not show up on initial X-rays. If your symptoms continue, see your physician. ABOUT YOUR LABORATORY TEST: If you had laboratory tests, the results have been reviewed by the Emergency Physician. Some test results (for example cultures) may not be available for several days. You will be contacted if any test result shows you need additional treatment. Please be certain the ED has a correct telephone number and address where you can be reached. ABOUT YOUR MEDICATIONS: You will receive instructions on how to take your medicine on the prescription label you receive. Additional information may be provided by the Pharmacy. If you have questions afterwards, call the ED for cla rification or further instructions. Some prescribed medications may cause drowsiness. Do not perform tasks such as driving a car or operating machinery without consulting your Pharmacist. If you feel you need a refill of pain medication, your condition will need re-evaluation. Please do not call for a refill of any medication. ABOUT YOUR SIGNATURE: Signature of this document acknowledges to followin. Understanding that you received emergency treatment and that you may be released before al medical problems are known or treated. Please be certain the ED has a correct phone number & address where you can be reached. 2. Acknowledgement that you will arrange for follow-up care as recommended. 3. Authorization for the Emergency Physician to provide information to your follow-up Physician in order to maximize your care. AT ANY TIME, IF YOUR SYMPTOMS CHANGE SIGNIFICANTLY OR WORSEN OR YOU DEVELOP NEW SYMPTOMS, RETURN TO THE EMERGENCY DEPARTMENT IMMEDIATELY FOR RE-EVALUATION. OUR GOAL IS TO PROVIDE EXCELLENT MEDICAL CARE! WE HOPE THAT WE HAVE MET YOUR EXPECTATIONS DURING YOUR EMERGENCY DEPARTMENT VISIT AND THAT YOU FEEL YOU HAVE RECEIVED EXCELLENT CARE! Referrals: YANIV WHITE PA [Primary Care Provider] - Follow up as needed I personally performed the services described in the documentation, reviewed and edited the documentation which was dictated to the scribe in my presence, and it accurately records my words and actions.
[2020-01-21 05:48] LABS: URINE BARBITURATES SCREEN NEGATIVE; URINE BENZODIAZEPINES SCREEN NEGATIVE; URINE COCAINE SCREEN NEGATIVE; URINE MARIJUANA (THC) SCREEN NEGATIVE; URINE METHADONE SCREEN NEGATIVE; URINE PHENCYCLIDINE SCREEN NEGATIVE
[2020-01-21 06:21] VITALS: BP 115/70
== END 2020-01-21 06:34 | disposition home or self-care (01) ==
LOC: ER 02:25
DX: T40.1X1A Poisoning by heroin, accidental (unintentional), initial encounter (principal); X58.XXXA Exposure to other specified factors, initial encounter; Z88.2 Allergy status to sulfonamides
CPT/HCPCS: 99284; 96360; 36415; 80307 ×2; 85025; 80053; 81001; J7030

== ENCOUNTER 2020-01-27 21:56 | Emergency (ER) | payer MEDICAID ==
--- NOTE | 2020-01-27 22:14 | ER Document Report ---
ED General - General Stated Complaint: RESP ARREST Time Seen by Provider: 01/27/20 22:06 Primary Care Provider: YANIV WHITE PA [PHYSICIAN VETERINARY ASSISTANT TECHNICIAN] - Follow up as needed Mode of Arrival: Medic Information source: Patient, Emergency Med Personnel Notes: Patient is a 39-year-old female presenting to the emergency department via EMS after overdosing on heroin. Her boyfriend called EMS that she was found unresponsive in her vehicle. She reports that she was using heroin but she did not intend to overdose. She has been seen here multiple times for the same complaint. She was administered Narcan by paramedics. She is alert, oriented and speaking in full and complete sentences at the time of arrival. TRAVEL OUTSIDE OF THE [place] IN LAST 30 DAYS: No - Related Data Allergies/Adverse Reactions: Sulfa (Sulfonamide Antibiotics) Allergy (Verified 06/25/11 08:24) Past Medical History - General Information source: Patient - Social History Smoking Status: Current Every Day Smoker Frequency of alcohol use: Occasional Drug Abuse: Heroin Family History: Other - Unable to obtain due to nature of patient's complaint Pulmonary Medical History: Reports: Hx Asthma, Hx Pneumonia Neurological Medical History: Reports: Hx Migraine Renal/ Medical History: Denies: Hx Peritoneal Dialysis Psychiatric Medical History: Reports: Hx Bipolar Disorder, Hx Depression Past Surgical History: Reports: Hx Tubal Ligation - Immunizations Hx Diphtheria, Pertussis, Tetanus Vaccination: Yes Review of Systems - Review of Systems Constitutional: No symptoms reported EENT: No symptoms reported Cardiovascular: No symptoms reported Gastrointestinal: No symptoms reported Genitourinary: No symptoms reported Female Genitourinary: No symptoms reported Musculoskeletal: No symptoms reported Skin: No symptoms reported Hematologic/Lymphatic: No symptoms reported Neurological/Psychological: No symptoms reported Physical Exam - Vital signs Vitals: Temp 97.9 F 01/27/20 21:56 - Notes Notes: PHYSICAL EXAMINATION: GENERAL: Disheveled. HEAD: Atraumatic, normocephalic. EYES: Pupils equal round and reactive to light, extraocular movements intact, conjunctiva are normal. ENT: Nares patent, oropharynx clear without exudates. Moist mucous membranes. NECK: Normal range of motion, supple without lymphadenopathy LUNGS: Breath sounds clear to auscultation bilaterally and equal. No wheezes rales or rhonchi. HEART: Regular rate and rhythm without murmurs ABDOMEN: Soft, nontender, nondistended abdomen. No guarding, no rebound. No masses appreciated. Female : deferred Musculoskeletal: Normal range of motion, no pitting or edema. No cyanosis. NEUROLOGICAL: Cranial nerves grossly intact. Normal speech, normal gait. Normal sensory, motor exams PSYCH: Normal mood, normal affect. SKIN: Track shipman to bilateral upper extremities. Course - Re-evaluation Re-evalutation: 01/27/20 22:13 Nursing staff called me to the room stating that patient wants to leave AMA, I had not physically seen the patient yet. I went to the bedside, evaluated the patient. Patient denies any suicidal intent. She states she just took too much heroin. We discussed the fact that she has been seen here multiple times for overdoses and that she could . I told patient that the Narcan that was given by EMS could wear off and she could become unresponsive again. I asked the patient if she would be willing to at least stay for 1 to 2 hours so we can monitor her. Patient is agreeable to this however she does not want any IV, blood work etc. Patient is leaving AGAINST MEDICAL ADVICE, she refuses to sign AMA paperwork. She is alert, oriented and can ambulate with a steady gait. - Vital Signs Vital signs: Temp Pulse Resp BP Pulse Ox 97.9 F 94 20 140/87 H 97 01/27/20 22:00 01/27/20 22:00 01/27/20 22:00 01/27/20 22:00 01/27/20 22:00 Discharge - Discharge Clinical Impression: Heroin overdose Qualifiers: Encounter type: initial encounter Injury intent: accidental or unintentional Qualified Code(s): T40.1X1A - Poisoning by heroin, accidental (unintentional), initial encounter Disposition: AGAINST MEDICAL ADVICE Referrals: YANIV WHITE PA [PHYSICIAN VETERINARY ASSISTANT TECHNICIAN] - Follow up as needed
[2020-01-27 22:20] VITALS: BP 140/87
== END 2020-01-27 22:39 | disposition left against medical advice (07) ==
LOC: ER 21:56
DX: T40.1X1A Poisoning by heroin, accidental (unintentional), initial encounter (principal); Y92.59 Other trade areas as the place of occurrence of the external cause; J45.909 Unspecified asthma, uncomplicated; F17.200 Nicotine dependence, unspecified, uncomplicated; Z88.2 Allergy status to sulfonamides; Z53.20 Procedure and treatment not carried out because of patient's decision for unspecified reasons
CPT/HCPCS: 99284

== ENCOUNTER 2020-02-06 15:14 | Emergency (ER) | payer MEDICAID ==
--- NOTE | 2020-02-06 15:36 | ER Document Report ---
ED General - General Chief Complaint: Overdose Stated Complaint: POSSIBLE OVERDOSE Time Seen by Provider: 02/06/20 15:36 TRAVEL OUTSIDE OF THE U.S. IN LAST 30 DAYS: No - HPI Patient complains to provider of: Heroin overdose Notes: 39-year-old female found minimally responsive at [facility] Given Narcan by EMS and law enforcement officers prehospital patient now has no complaints. Patient admits to using heroin prior to her arrival at [facility]. Patient has no complaints at this time denies suicidal or homicidal ideation Patient requesting Gatorade and a sandwich - Related Data Allergies/Adverse Reactions: Sulfa (Sulfonamide Antibiotics) Allergy (Verified 06/25/11 08:24) Past Medical History - Social History Smoking Status: Current Every Day Smoker Frequency of alcohol use: Social Drug Abuse: Heroin Family History: Other - Unable to obtain due to nature of patient's complaint Patient has homicidal ideation: No Pulmonary Medical History: Reports: Hx Asthma, Hx Pneumonia Neurological Medical History: Reports: Hx Migraine Renal/ Medical History: Denies: Hx Peritoneal Dialysis Psychiatric Medical History: Reports: Hx Bipolar Disorder, Hx Depression Past Surgical History: Reports: Hx Tubal Ligation - Immunizations Hx Diphtheria, Pertussis, Tetanus Vaccination: Yes Review of Systems - Review of Systems Notes: Constitutional: [PRESENT: as per HPI. ABSENT: chills, fever(s), headache(s), weight gain, weight loss] Eyes: [ABSENT: visual disturbances] Ears: [ABSENT: hearing changes] Cardiovascular: [ABSENT: chest pain, dyspnea on exertion, edema, orthropnea, palpitations] Respiratory: [ABSENT: cough, hemoptysis] Gastrointestinal: [ABSENT: abdominal pain, constipation, diarrhea, hematemesis, hematochezia, nausea, vomiting] Genitourinary: [ABSENT: dysuria, hematuria] Musculoskeletal: [ABSENT: joint swelling] Integumentary: [ABSENT: rash, wounds] Neurological: [ABSENT: abnormal gait, abnormal speech, confusion, dizziness, focal weakness, syncope] Psychiatric: [ABSENT: anxiety, depression, homicidal ideation, suicidal ideation] Endocrine: [ABSENT: cold intolerance, heat intolerance, menstrual abnormalities, polydipsia, polyuria] Hematologic/Lymphatic: [ABSENT: easy bleeding, easy bruising, lymphadenopathy] Physical Exam - Vital signs Vitals: Temp 98.6 F 02/06/20 15:31 - Notes Notes: PHYSICAL EXAMINATION: GENERAL: Well-appearing, well-nourished and in no acute distress. HEAD: Atraumatic, normocephalic. EYES: Pupils equal round, sclera anicteric, conjunctiva are normal. ENT: Surgical mask in place. NECK: Normal range of motion, LUNGS: No respiratory Distress, normal chest rise EXTREMITIES: Normal range of motion, No cyanosis. NEUROLOGICAL: Cranial nerves grossly intact. Normal speech, PSYCH: Normal mood, normal affect. SKIN: Warm, Dry, Course - Re-evaluation Re-evalutation: 02/06/20 15:43 39-year-old tenths after apparent heroin overdose. Patient was found breathing when EMS arrived. Did not do any CPR was given Narcan patient now has no complaints 02/06/20 16:41 Patient observed in the emergency department for approximately one half for episodes of unresponsiveness hypoxia lab abnormalities. Patient has no toxic labs EKG unremarkable. Patient eating drinking acting appropriately discharged home improved follow-up PCP - Vital Signs Vital signs: Temp Pulse Resp BP Pulse Ox 98.6 F 95 12 137/88 H 98 02/06/20 15:33 02/06/20 15:33 02/06/20 15:33 02/06/20 15:33 02/06/20 15:33 - Laboratory Result Diagrams: 02/06/20 15:20 02/06/20 15:20 Laboratory results interpreted by me: 02/06/20 02/06/20 15:20 15:20 RDW 15.0 H Glucose 172 H Salicylates < 1.0 L Acetaminophen < 10 L - EKG Interpretation by Me Additional EKG results interpreted by me: 02/06/20 15:58 Normal sinus rhythm, no ST elevations or depressions, no pathologic T wave inversions Discharge - Discharge Clinical Impression: Opioid abuse with intoxication Condition: Stable Disposition: HOME, SELF-CARE
[2020-02-06 15:41] LABS: ABSOLUTE BASOPHILS # (AUTO) 0.1 10^3/uL (0.0-0.2); ABSOLUTE EOSINOPHILS # (AUTO) 0.2 10^3/uL (0.0-0.6); ABSOLUTE LYMPHOCYTES (AUTO) 2.2 10^3/uL (0.5-4.7); ABSOLUTE MONOCYTES (AUTO) 0.4 10^3/uL (0.1-1.4); ABSOLUTE NEUT (AUTO) 5.4 10^3/uL (1.7-8.2); BASOPHILS % (AUTO) 0.6 % (0-2); EOSINOPHILS % (AUTO) 2.8 % (0-6); HEMOGLOBIN 14.2 g/dL (12.0-15.5); LYMPHOCYTES % (AUTO) 26.4 % (13-45); MEAN CORPUSCULAR HGB CONC 32.4 g/dL (32.0-36.0); MEAN CORPUSCULAR VOLUME 83 fl (80-97); MONOCYTES % (AUTO) 5.2 % (3-13); PLATELET COUNT 373 10^3/uL (150-450); RED BLOOD COUNT 5.28 10^6/uL (3.72-5.28); TOTAL CELLS COUNTED % (AUTO) 100 %; WHITE BLOOD COUNT 8.3 10^3/uL (4.0-10.5)
[2020-02-06 15:58] LABS: ALBUMIN 4.2 g/dL (3.5-5.0); ALKALINE PHOSPHATASE 72 U/L (38-126); ANION GAP 5 (5-19); ASPARTATE AMINO TRANSFERASE 31 U/L (14-36); BILIRUBIN,TOTAL 0.5 mg/dL (0.2-1.3); BLOOD UREA NITROGEN 11 mg/dL (7-20); CALCIUM 9.4 mg/dL (8.4-10.2); CARBON DIOXIDE 29 mmol/L (22-30); CHLORIDE 104 mmol/L (98-107); GLUCOSE 172 mg/dL (75-110); POTASSIUM 4.4 mmol/L (3.6-5.0); TOTAL PROTEIN 7.5 g/dL (6.3-8.2)
[2020-02-06 16:00] LABS: ALCOHOL < 10 mg/dL (NONE DETECTED)
[2020-02-06 16:01] LABS: ACETAMINOPHEN < 10 ug/mL (10-30); SALICYLATE < 1.0 mg/dL (2.0-20.0)
[2020-02-06 18:15] VITALS: BP 124/73
--- NOTE | 2020-02-07 15:29 | EKG REPORT ---
SEVERITY:- NORMAL ECG - SINUS RHYTHM : Confirmed by: Dereck Page MD 07-Feb-2020 15:28:53
== END 2020-02-06 18:15 | disposition home or self-care (01) ==
LOC: ER 15:14
DX: F11.129 Opioid abuse with intoxication, unspecified (principal); T40.1X2A Poisoning by heroin, intentional self-harm, initial encounter; Z88.2 Allergy status to sulfonamides; F17.200 Nicotine dependence, unspecified, uncomplicated; J45.909 Unspecified asthma, uncomplicated
CPT/HCPCS: 36415; 80053; 80307; 82962; 85025; 93005; 93010; 99284

== ENCOUNTER 2020-03-06 23:07 | Emergency (ER) | payer OTHER, MEDICAID ==
[2020-03-07] MEDS ORDERED: KETOROLAC TROMETHAMINE INJ/PF 30 MG/1 ML SDV IM ONE (00:48)
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
[2020-03-07 05:07] VITALS: BP 120/80
== END 2020-03-07 01:11 | disposition home or self-care (01) ==
LOC: ER 23:07
DX: S80.812A Abrasion, left lower leg, initial encounter (principal); S80.811A Abrasion, right lower leg, initial encounter; S40.812A Abrasion of left upper arm, initial encounter; S40.811A Abrasion of right upper arm, initial encounter; R07.89 Other chest pain; F19.10 Other psychoactive substance abuse, uncomplicated; J45.909 Unspecified asthma, uncomplicated; V89.2XXA Person injured in unspecified motor-vehicle accident, traffic, initial encounter
CPT/HCPCS: 99284; 96372; J1885

== ENCOUNTER 2020-03-09 16:55 | Emergency (ER) | payer MEDICAID, OTHER ==
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
[2020-03-09 20:54] VITALS: BP 118/80
--- NOTE | 2020-03-10 02:53 | EKG REPORT ---
SEVERITY:- BORDERLINE ECG - SINUS TACHYCARDIA PROBABLE LEFT ATRIAL ABNORMALITY : Confirmed by: Dereck Page MD 10-Mar-2020 02:52:36
== END 2020-03-09 20:51 | disposition home or self-care (01) ==
LOC: EEVIPCON 16:55 → ER 16:55
DX: T40.1X1A Poisoning by heroin, accidental (unintentional), initial encounter (principal); X58.XXXA Exposure to other specified factors, initial encounter; Z88.2 Allergy status to sulfonamides
CPT/HCPCS: 93005; 93010; 99283

== ENCOUNTER 2020-03-10 15:29 | Emergency (ER) | payer MEDICAID, OTHER ==
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
[2020-03-10 16:50] LABS: APPEARANCE,URINE SLIGHTLY-CLOUDY; BILIRUBIN,URINE NEGATIVE (NEGATIVE); COLOR,URINE YELLOW; GLUCOSE, URINE NEGATIVE (NEGATIVE); KETONES,URINE NEGATIVE (NEGATIVE); LEUKOCYTE ESTERASE,URINE NEGATIVE (NEGATIVE); NITRITE,URINE NEGATIVE (NEGATIVE); PROTEIN,URINE NEGATIVE (NEGATIVE); URINE SPECIFIC GRAVITY 1.021
[2020-03-10 16:50] LABS: ABSOLUTE EOSINOPHILS # (AUTO) 0.2 10^3/uL (0.0-0.6); ABSOLUTE MONOCYTES (AUTO) 0.7 10^3/uL (0.1-1.4); ABSOLUTE NEUT (AUTO) 9.3 10^3/uL (1.7-8.2); BASOPHILS % (AUTO) 0.3 % (0-2); EOSINOPHILS % (AUTO) 2.1 % (0-6); HEMATOCRIT 37.2 % (36.0-47.0); HEMOGLOBIN 12.3 g/dL (12.0-15.5); LYMPHOCYTES % (AUTO) 9.2 % (13-45); MEAN CORPUSCULAR HEMOGLOBIN 27.2 pg (27.0-33.4); MEAN CORPUSCULAR VOLUME 83 fl (80-97); MONOCYTES % (AUTO) 6.5 % (3-13); PLATELET COUNT 365 10^3/uL (150-450); RED BLOOD COUNT 4.51 10^6/uL (3.72-5.28); RED CELL DISTRIBUTION WIDTH 14.2 % (11.5-14.0); SEGMENTED NEUTROPHILS % (AUTO) 81.9 % (42-78); TOTAL CELLS COUNTED % (AUTO) 100 %; WHITE BLOOD COUNT 11.3 10^3/uL (4.0-10.5)
[2020-03-10 16:59] LABS: INTERNATIONAL RATION (INR) 0.99; PROTHROMBIN TIME 13.3 SEC (11.4-15.4)
[2020-03-10 17:04] LABS: URINE BARBITURATES SCREEN NEGATIVE; URINE BENZODIAZEPINES SCREEN NEGATIVE; URINE METHADONE SCREEN NEGATIVE; URINE PHENCYCLIDINE SCREEN NEGATIVE
[2020-03-10 17:19] LABS: BLOOD UREA NITROGEN 8 mg/dL (7-20); CALCIUM 8.7 mg/dL (8.4-10.2); GLUCOSE 77 mg/dL (75-110)
[2020-03-10 17:20] LABS: ALBUMIN 3.7 g/dL (3.5-5.0); ALKALINE PHOSPHATASE 74 U/L (38-126); ANION GAP 6 (5-19); ASPARTATE AMINO TRANSFERASE 26 U/L (14-36); BILIRUBIN,DIRECT 0.3 mg/dL (0.0-0.4); BILIRUBIN,TOTAL 0.7 mg/dL (0.2-1.3); CARBON DIOXIDE 35 mmol/L (22-30); CHLORIDE 93 mmol/L (98-107); POTASSIUM 3.5 mmol/L (3.6-5.0); TOTAL PROTEIN 6.9 g/dL (6.3-8.2)
[2020-03-10 17:24] LABS: ACETAMINOPHEN < 10 ug/mL (10-30); ALCOHOL < 10 mg/dL (NONE DETECTED); SALICYLATE < 1.0 mg/dL (2.0-20.0)
[2020-03-10] MEDS ORDERED: RINGERS SOLUTION,LACTATED 1,000 ML IV ONE ×2 (17:57→21:01)
[2020-03-10] MEDS ORDERED: ACETAMINOPHEN 325 MG TABLET PO ONE (17:57)
[2020-03-10 18:20] LABS: URINE COCAINE SCREEN UNCONFIRMED POSITIVE; URINE MARIJUANA (THC) SCREEN UNCONFIRMED POSITIVE
[2020-03-10] MEDS ORDERED: DOXYCYCLINE HYCLATE INJ 100 MG VIAL IV ONE (18:39)
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
[2020-03-10] MEDS ORDERED: KETOROLAC TROMETHAMINE INJ/PF 30 MG/1 ML SDV IV ONE (21:02)
--- NOTE | 2020-03-10 21:46 | EKG REPORT ---
SEVERITY:- NORMAL ECG - SINUS RHYTHM : Confirmed by: Gena Rose 10-Mar-2020 21:45:05
[2020-03-11] MEDS: DOXYCYCLINE HYCLATE 100 MG TABLET PO SCH ×2 (00:47→09:00)
[2020-03-11 01:26] VITALS: BP 100/48
--- NOTE | 2020-03-11 13:54 | ER Document Report ---
Doctor's Note Notes: 03/11/20 13:49 Patient's vital signs and previous labs, diagnostic imaging reviewed. Reviewed mental health notes, nurses notes and previous vital signs. Patient is in no distress at this time denies any SI or HI. General: no acute distress Heart: Lungs: no respiratory distress Psych: normal affect Skin: Multiple open weeping lesions with mild surrounding erythema. A&P: Patient with cellulitis. She can be discharged from a medical stand point. I Juancho with mental health notified me that we cannot keep her until the MRSA results have come back. Patient notifies me that she cannot afford any medications at this time. I have consulted social work as patient needs medications to treat this infection. 03/11/20 14:33 welfare eligibility worker informs me that we can provide her a medication for her cellulitis to continue her treatment outpatient as she has been cleared by mental [facility] and we cannot hold her just to wait on the wound culture results.. She does have a cell phone on which she can be contacted for the results of her wound culture. I discussed with her the importance of picking up this medication and taking the medication as well as seeking treatment for her substance abuse. Patient acknowledges and verbalizes understanding of instructions and plan. All questions answered.
== END 2020-03-11 14:46 | disposition home or self-care (01) ==
LOC: ER 15:29
DX: S80.812A Abrasion, left lower leg, initial encounter (principal); S80.811A Abrasion, right lower leg, initial encounter; F11.10 Opioid abuse, uncomplicated; L03.116 Cellulitis of left lower limb; L03.115 Cellulitis of right lower limb; V43.92XA Unspecified car occupant injured in collision with other type car in traffic accident, initial encounter; Z88.2 Allergy status to sulfonamides
CPT/HCPCS: 93005; 99285; 96361; 96375; 96365; 36415; 87040; 87070; 80307 ×4; 84703; 85025; 85610; 87075; 80053; 81001; 93010; J3490 ×3; J1885; J7120; 87077; 87150; 87205